=== PATIENT | female | born 1950 | race Caucasian/White ===

== ENCOUNTER 2020-02-08 09:45 | Outpatient (CLI) | payer MEDICARE, OTHER, SELFPAY ==
--- NOTE | ~2020-02-08 | MM_ITS ---
EXAMINATION: MM screening cristiano BI w soledad HISTORY: Screening mammogram TECHNIQUE: Craniocaudal and mediolateral oblique 3-D tomosynthesis images were obtained and synthetic 2-D images were generated. CAD analysis was submitted and interpreted. COMPARISON: 07/21/2018, 10/29/2016, 08/22/2014 bilateral digital screening mammogram examinations BREAST PARENCHYMAL COMPOSITION: The breasts are heterogeneously dense, which may obscure small masses . FINDINGS: There is no evidence of suspicious mass, calcification, or architectural distortion to sugg est malignancy in either breast. There has been no suspicious interval change. IMPRESSION: 1. No mammographic evidence of malignancy. 2. Recommend routine screening mammography in one year. BI-RADS Category 1: Negative Reviewed, dictated and finalized at location A.
== END 2020-02-08 09:46 | disposition home or self-care (01) ==
LOC: ANHIMG 10:01
DX: Z12.31 Encounter for screening mammogram for malignant neoplasm of breast (principal)
CPT/HCPCS: 77063; 77067

== ENCOUNTER 2021-02-20 01:15 | Day surgery (SDC) | payer MEDICARE, OTHER, SELFPAY ==
[2021-02-06 15:55] VITALS: BMI 24.5
[2021-02-20] MEDS: LACTATED RINGERS 1,000 ML 150 ML IV CONT (09:58)
[2021-02-20 10:04] VITALS: BP 139/74; PULSE 50; RESP 18; TEMP 36.3; O2SAT 100; BMI 23.6
--- NOTE | 2021-02-20 10:06 | WPDGICN ---
Assessment and Plan Assessment and plan (1) Diverticulitis: Code(s): K57.92 - Diverticulitis of intestine, part unspecified, without perforation or abscess without bleeding Status: Acute Assessment and Plan: Patient presents for screening colonoscopy. She has resolved diverticulitis several months ago. Patient is encouraged to take a high-fiber diet. Further recommendations may be given after endoscopy. Currently diverticulitis appears resolved clinically. GI Consult Note Consult date/time: 02/20/21 10:06 HPI: Pili Moran is a 70 year old female Presents because of history of diverticulitis. Patient states that in August or September of this year she experience left lower quadrant pain. She was found to have diverticulitis. Patient was treated with broad-spectrum antibiotic coverage to pain has resolved. She is referred here because of history of diverticulitis. She currently denies any abdominal pain. She states that her weight appetite bowel movements are normal. Patient reports that she had a previous episode of diverticulitis in 2017 that has resolved until her current episodes. Patient's family history is noncontributory. Patient has no reported family history of polyps or cancer. Review of Systems Review of Systems: All systems reviewed & are unremarkable except as noted in HPI and below PMFSH Social History Social History Smoking status: Former smoker Tobacco type: cigarettes Alcohol intake: current Drinks per week: 7 Living arrangements: with family Spiritual care concerns: No Meds Home Medications and Allergies Home Medications Medication Instructions Recorded Confirmed Type amlodipine 5 mg PO DAILY 02/06/21 02/06/21 History ascorbic acid (vitamin C) 500 mg PO DAILY 02/06/21 02/06/21 History aspirin [Adult Low Dose Aspirin] 81 mg PO DAILY 02/06/21 02/06/21 History cholecalciferol (vitamin D3) 25 mcg PO DAILY 02/06/21 02/06/21 History [Vitamin D3] fiber 1 cap PO DAILY 02/06/21 02/06/21 History potassium chloride 20 meq PO DAILY 02/06/21 02/06/21 History rosuvastatin 5 mg PO DAILY 02/06/21 02/06/21 History Allergies Allergy/AdvReac Type Severity Reaction Status Date / Time No Known Allergies Allergy Unverified 02/06/21 15:52 Vital Signs Vital Signs - 24 hr 02/20/21 10:04 Temperature 97.3 F L Pulse Rate 50 L Respiratory Rate 18 Blood Pressure 139/74 Pulse Oximetry 100 Exam Narrative: Exam Narrative: Physical exam reveals patient be alert. Vital signs stable. HEENT exam is unremarkable. Patient is anicteric. Lungs are clear to auscultation and percussion. Heart is without murmur or extra sounds. Abdominal exam bowel sounds are present soft nontender with no organomegaly.
--- NOTE | 2021-02-20 10:38 | WPDANESEPPF ---
Anes - Initial Pre Proc Eval Procedure: Operation Date: 02/20/21 11:00 Proposed Procedures p Colonoscopy - Lobo Gutierrez MD Date/Time: 02/20/21 10:38 Surgeon: Lobo Gutierrez MD Pre Op Diagnosis: diverticulitis Patient Data Age: 70 Gender: F Height: 1.55 m Weight: 56.7 kg Last Vital Signs Temp 97.3 F L 02/20/21 10:04 Pulse 50 L 02/20/21 10:04 Resp 18 02/20/21 10:04 BP 139/74 02/20/21 10:04 Pulse Ox 100 02/20/21 10:04 Allergies Allergy/AdvReac Type Severity Reaction Status Date / Time No Known Allergies Allergy Unverified 02/06/21 15:52 Home Medications Medication Instructions Recorded Confirmed Type amlodipine 5 mg PO DAILY 02/06/21 02/06/21 History ascorbic acid (vitamin C) 500 mg PO DAILY 02/06/21 02/06/21 History aspirin [Adult Low Dose Aspirin] 81 mg PO DAILY 02/06/21 02/06/21 History cholecalciferol (vitamin D3) 25 mcg PO DAILY 02/06/21 02/06/21 History [Vitamin D3] fiber 1 cap PO DAILY 02/06/21 02/06/21 History potassium chloride 20 meq PO DAILY 02/06/21 02/06/21 History rosuvastatin 5 mg PO DAILY 02/06/21 02/06/21 History Patient hx anesthesia problems: none Family hx anesthesia problems: none [facility] Past Medical History Medical History (Updated 02/20/21 @ 10:35 by Cyrus Reddy MD) Hyperlipidemia Hypertension Social History Social History Smoking status: Former smoker Tobacco type: cigarettes Alcohol intake: current Drinks per week: 7 Living arrangements: with family Spiritual care concerns: No Anes - Eval Final PreProcedure Day of Procedure 02/20/21 10:38 Patient weight: normal Heart: regular rate and rhythm Lungs: clear to auscultation Airway: Mallampati scale class II Neurological: alert and oriented Last oral intake: >/= 8 hours ASA classification: II Emergent: no Anesthetic plan: proceed Anesthesia type and monitoring: general GIVS and standard monitoring Informed Consent: The patient's anesthetic plan and its attendant risks and benefits were discussed with the patient/family/POA. Questions were solicited and answers provided to the satisfaction of the patient/family/POA.
[2021-02-20 11:06] VITALS: BP 112/68; PULSE 60; RESP 16; O2SAT 99
[2021-02-20 11:16] VITALS: BP 114/74; PULSE 60; RESP 20; O2SAT 99
[2021-02-20 11:26] VITALS: BP 131/68; PULSE 60; RESP 20; O2SAT 99
== END 2021-02-20 11:40 | disposition home or self-care (01) ==
PROVIDERS: Visit Provider Internal Medicine Gastroenterology
PROC: 0DJD8ZZ Inspection of Lower Intestinal Tract, Via Natural or Artificial Opening Endoscopic (ICD-10-PCS; CPT 45378; principal; 2021-02-20 11:00)
DX: Z12.11 Encounter for screening for malignant neoplasm of colon (principal); K57.30 Diverticulosis of large intestine without perforation or abscess without bleeding; K64.8 Other hemorrhoids; Z87.19 Personal history of other diseases of the digestive system; Z87.891 Personal history of nicotine dependence; Z79.82 Long term (current) use of aspirin
CPT/HCPCS: G0121; J2704; J7120

== ENCOUNTER 2023-05-06 09:46 | Outpatient (CLI) | payer MEDICARE, SELFPAY ==
--- NOTE | ~2023-05-06 | MM_ITS ---
EXAMINATION: MM screening cristiano BI w soledad HISTORY: Screening TECHNIQUE: Craniocaudal and mediolateral oblique 3-D tomosynthesis images were obtained and synthetic 2-D images were generated. CAD analysis was submitted and interpreted. COMPARISON: Comparison to multiple prior studies sequentially, with oldest reviewed study dated 05/18. BREAST PARENCHYMAL COMPOSITION: The breasts are heterogeneously dense, which may obscure small masses .. FINDINGS: There is no evidence of suspicious mass, calcification, or architectural distortion to sugg est malignancy in either breast. There has been no suspicious interval change. IMPRESSION: 1. No mammographic evidence of malignancy. 2. Recommend routine screening mammography in one year. BI-RADS Category 1: Negative Reviewed, dictated and finalized at location A.
== END 2023-05-06 09:47 | disposition home or self-care (01) ==
LOC: ANHIMG 09:51
DX: Z12.31 Encounter for screening mammogram for malignant neoplasm of breast (principal)
CPT/HCPCS: 77063; 77067

== ENCOUNTER 2024-11-23 09:55 | Outpatient (CLI) | payer MEDICARE, SELFPAY ==
--- NOTE | ~2024-11-23 | MM_ITS ---
EXAMINATION: MM screening cristiano BI w soledad HISTORY: Screening TECHNIQUE: Craniocaudal and mediolateral oblique 3-D tomosynthesis images were obtained and synthetic 2-D images were generated. CAD analysis was submitted and interpreted. COMPARISON: Comparison to multiple prior studies sequentially, with oldest reviewed study dated 10/29. BREAST PARENCHYMAL COMPOSITION: Dense: The breasts are heterogeneously dense, which may obscure small masses FINDINGS: There is no evidence of suspicious mass, calcification, or architectural distortion to sugg est malignancy in either breast. There has been no suspicious interval change. IMPRESSION: 1. No mammographic evidence of malignancy. 2. Recommend routine screening mammography in one year. BI-RADS Category 1: Negative Reviewed, dictated and finalized at location A.
--- OUTSIDE RECORDS SUMMARY | 2024-11-23 11:11 | XMS_ITS ---
Author Organization [facility] Address [address] [place] [address] Care Team Providers Care Skin Peeling Machine Operator Name Role Phone Avelina Coronel Primary Care Provider Alonso Toussaint Unavailable [phone] Encounters Encounter Location Date Provider Diagnosis [facility] [address] [place] [address] 10/26/2024 Alonso Bourne PLAN OF TREATMENT No Information
--- OUTSIDE RECORDS SUMMARY | 2024-11-23 11:12 | XMS_ITS | Clinical Summary ---
Author Organization [facility] Address [address] [facility] [place] [address] Care Team Providers Care Sustainability Director Name Role Phone Avelina Coronel MD Primary Care Provider + Lobo Mcarthur MD Unavailable [phone] Source Comments [facility],non-owned Affiliates and Associated Physician Practices is amultiple site organization consisting of ambulatory clinics and hospital sitesin [place], [place], [place] and [place]. This disclosure is being madepursuant to the Care Everywhere program and may not contain all information available regarding this patient. Last updated 18.[facility] Allergies No known active allergies Medications * Be aware that medications may not be up to date on this document. Alwaysverify current medications with the patient. Medication Sig Dispensed Refills Start Date End Date Status multivitamins (ONE A DAY) tablet Take 1 Tab by mouth daily. Active GLUCOSAMINE CHONDRO COMPLEX PO Take by mouth daily. Acti ve aspirin 81 MG tablet Take 81 mg by mouth daily. With food Active PSYLLIUM POIndications:fiber supplement Take by mouth once daily Reasons: fiber supplement Active amlodipine (NORVASC) 5 MG tabletIndications:Hy pertension,Fear of,Bronchiectasis,Hy perglycemia Take 1 Tab by mouth daily. 90 3 07/18/2009 Active docusate sodium (COLACE) 100 MG capsule Take 1 Cap by mouth once daily as needed for Constipation. 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 Diverticulosis () 07/20/2008 Laryngopharyngeal Reflux causing a recurrent cou gh 07/20/2008 Bronchiectasis 07/20/2008 Hyperglycemia 07/20/2008 Immunizations Name Administration Dates Next Due INFLUENZA VACCINE 05/01/2009,06/17/2008,06/17/20 07 PNEUMOCOCCAL PPSV23 11/15/2006 TDAP (7yrs+) 11/15/2006 Family History Medical History Relation Name Comments Diabetes Brother 1 Cancer - Colon Brother 2 Hypertension Mother Stroke Mother Cancer - Breast Sister Relation Name Status Comments Brother 1 Brother 2 Mother Sister Social History Tobacco Use Types Packs/Day Years Used Date Smoking Tobacco: Former Cigarettes 0.5 29 0 08/17/1968 - 08/17/1997 Smokeless Tobacco: Never Tobacco Cessation:Counseling Given: No Alcohol Use Standard Drinks/Week Comments Yes 2.5 (1 standard drink = 0.6 oz p ure alcohol) socially Sex and Gender Information Value Date Recorded Sex Assigned at Not on file Gender Identity Not on file Sexual Orientation Not on file Last Filed Vital Signs Vital Sign Reading Time Taken Comments Blood Pressure 124/60 08/24/2019 1:09 PM AIRCRAFT CLEANING SUPERVISOR Pulse 84 08/24/2019 1:09 PM AIRCRAFT CLEANING SUPERVISOR Temperature 37.1 C (98.7 F) 08/24/2019 1:09 PM AIRCRAFT CLEANING SUPERVISOR Respiratory Rate 18 03/06/2017 8:58 AM CDT Oxygen Saturation 98% 08/24/2019 1:09 PM AIRCRAFT CLEANING SUPERVISOR Inhaled Oxygen Concentration 98% 10/23/2010 1 :18 PM AIRCRAFT CLEANING SUPERVISOR Weight 59.9 kg (132 lb) 08/24/2019 1:09 PM AIRCRAFT CLEANING SUPERVISOR Height 154.9 cm (5' 1 ) 03/04/2017 3:30 PM CDT Body Mass Index 24.94 03/04/2017 3:30 PM CDT Plan of Treatment Health Maintenance Due Date Last Done Comments COLOGUARD (AGES 45-75) - COL ON CA SCREENING 1950 CT COLONOGRAPHY - COLON CA SCREENING 1950 FIT - COLON CA SCREENING 1950 FLEX SIG - COLON CA SCREENING 1950 MEDICARE AWV 12 MONTHS 1950 HEPATITIS C SCREENING 09/02/1970 ZOSTER VACCINE (1 of 2) 2002 PNEUMOCOCCAL VACCINE 50+ (2 of 2 - PCV) 11/16/2007 11/15/2006 MAMMOGRAM 09/08/2010 09/08/2008 BONE DENSITY TESTING 07/17/2012 07/17/2007 COLON MONITORING 10/26/2015 10/25/2010, 10/23/2010, 03/17/2007 Colorectal Cancer Screening 10/26/2015 DTAP/TDAP/TD VACCINES (2 - T d or Tdap) 11/15/2016 11/15/2006 COLONOSCOPY - COLON CA SCREENING 10/23/2020 10/23/2010 COVID-19 VACCINE (1 - 2023-2 5 season) 2024 DEPRESSION SCREENING 08/17/2024 INFLUENZA VACCINE (Season Ended) 2025 05/01/2009, 06/17/2008, 06/17/2007 Respiratory Syncytial Virus (RSV) Vaccine Pt: or over 60 yrs (1 - 1-dose 75+ series) 2027 HEPATITIS B VACCINE Aged Out No longe r eligible based on patient's age to complete this topic HIB VACCINE Aged Out No longer eligi ble based on patient's age to complete this topic HPV VACCINE Aged Out No longer eligi ble based on patient's age to complete this topic MENINGOCOCCAL (Group B) VACCINE SHARED DECISION-MAKING Aged Out No longer eligible based on patient's age to complete this topic MENINGOCOCCAL GROUPS A/C/Y/W VACCINE Aged Out No longer eligible b ased on patient's age to complete this topic Procedures Procedure Name Priority Date/Time Associated Diagnosis Comments ENDOSCOPY, COLON, SCREENING Routine 10/23/2010 MAMMO BILAT SCREENING Routine 09/08/2008 from Last 3 Months or Most Recently Relevant to Health Maintenance Results * ENDOSCOPY, COLON, SCREENING (10/23/2010) Ryne Naylor MD GI PROCEDURE ORDERAB LES * MAMMO SCREENING DIGITAL IMAGE BILAT (09/08/2008) Anatomical Region Laterality Modality Breast Bilateral Other Brittnee Us MD MAMMO ORDERABLES from Last 3 Months or Most Recently Relevant to Health Maintenance Advance Directives * Full Code (Latest Code Status on File) Date Activated Date Inactivated Comments 03/04/2017 11:00 PM 03/06/2017 12:06 PM Care Teams Sustainability Director Relationship Specialty Start Date End Date Avelina Coronel MD PCP - General Internal Medicine 08/29/10 Lobo Mcarthur MD [address] [facility] [address] [place] [address] System Support Specialist Cardiology 08/24/19
--- OUTSIDE RECORDS SUMMARY | 2024-11-23 11:12 | XMS_ITS ---
Author Organization [facility] Address [address] [place] [address] Care Team Providers Care Software Technician Name Role Phone Avelina Coronel Primary Care Provider Alonso Toussaint Unavailable [phone] ALLERGIES No Known Allergies REASON FOR REFERRAL Reason DIAGNOSES: cervical radiculopathy, hand weakness, HNP, scoliosis, DDD, facet DJD 3 times per week for 3 weeks eval and treat, exercise, modalities per therapist's discretion; HEP Referral Organization [facility] Referring Provider First Name Alonso Referring Provider Last Name Tayla Referring Provider Speciality Orthopedic Surgery Referred Provider Specialty Physical The rapy Referral Priority Routine REASON FOR VISIT f/u after PT & NELLY MEDICATIONS Medication SIG (Take, Route, Fr equency, Duration) Notes Start Date End Date Status Rosuvastatin Calcium Active amLODIPine Benzoate Active Meloxicam 15 MG 1 tablet Orally Once a day with food for 90 days 08/31/2024 Active PROBLEMS Problem Type ICD Code Onset Dates Problem Status W/U Status Risk SNOMED Code Notes Problem Cervical disc disorder with radiculopathy (M50.10) Active confirmed Cervical disc disorder with radiculopathy ([id number]) VITAL SIGNS BMI 24.56 kg/m2 09/14/2024 Height 61 in 09/14/2024 Weight 130 lbs 09/14/2024 Encounters Encounter Location Date Provider Diagnosis [facility] [address] [place] [address] 09/14/2024 Alonso Bourne Cervical disc disord er with radiculopathy M50.10 ; Cervical spinal stenosis M48.02 ; DDD (degenerative disc disease), cervical M50.30 ; Scoliosis M41.9 ; Facet arthritis, degenerative, cervical spine M47.812 and Left shoulder pain M25.512 ASSESSMENTS Encounter Date Diagnosis Assessment Notes Treatment Notes Treatment Clinical Notes 09/14/2024 Cervical disc disorder with radiculopathy (ICD-10 - M50.10) 09/14/2024 Cervical spinal stenosis (ICD-10 - M48.02) 09/14/2024 DDD (degenerative disc disease), cervical (ICD-10 - M50.30) 09/14/2024 Scoliosis (ICD-10 - M41.9) 09/14/2024 Facet arthritis, degenerative, cervical spine (ICD-10 - M47.812) 09/14/2024 Left shoulder pain (ICD-10 - M25.512) PLAN OF TREATMENT Referrals Referral Date Details DIAGNOSES: cervical radiculopathy, hand weakness, HNP, scoliosis, DDD, facet DJD 3 times per week for 3 weeks eval and treat, exercise, modalities per therapist's discretion; [facility] Progress Notes * Examination Category Sub-Category Detail Notes General Examination GENERAL: Patient is a n alert and cooperative female who moves about the room in a cautious fashion. She does not walk with a list/limp. She has difficulty with tandem walking and exhibits mild ataxia NECK: ROM reduced in all d irections by 35%. Spurling's test mildly positive into L. arm HEART: Regular rate and rhy thm LUNGS: Clear to auscultatio n in all spaulding ABDOMEN: No tenderness to pal pation, bowel sounds present all four quadrants NEUROLOGIC: UE neurologic exam r eveals diminished sensation to pinprick bilaterally. Decreased L. flexor strength. L. hand intrinsic muscle weakness. L. hand digit extensor weakness. DTR's symmetric. Deyanira's sign negative. LE neurologic exam reveals symmetric DTR's, intact sensation, 5+/5+ motor strength. SLR testing negative. Mild ataxia with heel to toe walk. No clonus, negative Babinski's sign involving LE's SKIN: No evidence of skin rashes or dermal lesions MUSCULOSKELETAL: Thoracic exam reveal s tension involving medial scapular musculature and L. trapezius musculature. Lumbar exam reveals no tenderness to palpation, no spasm. Lumbar ROM near full PSYCHIATRIC: Mood and affect appe ar normal HEENT: No masses, PERRLA, E OM intact, no nasal drainage, no lymphadenopathy JOINTS: She c/o pain involvi ng R. shoulder with decreased ROM. She has a known h/o arthritis. She has a h/o knee arthritis with knee pain HEMATOLOGIC: No evidence of exces sive bruising or bleeding Plain X-ray Imaging Studies CERVICAL SPINE X-RAY S: Consultation Request Notes Referral Date Referring Provider Referred Provider Not es 09/14/2024 Alonso Bourne , DIAGNOSES: c ervical radiculopathy, hand weakness, HNP, scoliosis, DDD, facet DJD 3 times per week for 3 weeks eval and treat, exercise, modalities per therapist's discretion; HEP
--- OUTSIDE RECORDS SUMMARY | 2024-11-23 11:12 | XMS_ITS ---
Author Organization [facility] Address [address] [facility] [address] [place] [address] Care Team Providers Care Engraver Lettering Name Role Phone Avelina Coronel Primary Care Provider Alonso Toussaint Unavailable [phone] REASON FOR VISIT Cervical Encounters Encounter Location Date Provider Diagnosis [facility] [address] [facility] [address] [place] [address] 09/12/2024 Alonso Bourne PLAN OF TREATMENT No Information
--- OUTSIDE RECORDS SUMMARY | 2024-11-23 11:12 | XMS_ITS | Clinical Summary ---
Author Organization [facility] Address [address] [place] [address] Care Team Providers Care Tool Clerk Name Role Phone Unavailable Primary Care Provider Unavailabl e Encounters Date Type Department Care Team Description 11/02/2024 External Device Data [facility] ABSTRACTION Provider, Abstract 10/22/2024 External Device Data [facility] ABSTRACTION Provider, Abstract 10/21/2024 External Device Data [facility] ABSTRACTION Provider, Abstract 10/19/2024 External Device Data [facility] ABSTRACTION Provider, Abstract 10/05/2024 External Device Data [facility] ABSTRACTION Provider, Abstract 09/14/2024 External Device Data [facility] ABSTRACTION Provider, Abstract 09/08/2024 External Device Data [facility] ABSTRACTION Provider, Abstract 08/30/2024 External Device Data [facility] ABSTRACTION Provider, Abstract 08/27/2024 11:00 AM COMMUNITY ASSISTANT Ancillary Procedure [facility] [address] [place] [address] Avelina Coronel MD Cervical myelopathy with cervical radiculopathy (CMS/HCC) from Last 3 Months Social History Tobacco Use Types Packs/Day Years Used Date Smoking Tobacco: Never Assessed Comments Unknown Sex and Gender Information Value Date Recorded Sex Assigned at Not on file Legal Sex Female 7:24 PM COMMUNITY ASSISTANT Gender Identity Not on file Sexual Orientation Not on file Plan of Treatment Health Maintenance Due Date Last Done Comments FIT-DNA Q 3 years 1997 FIT/FOBT Q 1 year 1997 Flex Sig/CT Colonography Q 5 years 1997 ZOSTER VACCINE (1 of 2) 2002 PNEUMOCOCCAL VACCINE 50+ YEA RS (2 of 2 - PCV) 11/16/2007 11/15/2006 BREAST CANCER SCREENING 09/08/2009 09/08/2008 RSV VACCINE (60+ or ) (1 - Risk 60-74 years 1-dose series) 2012 DTAP/TDAP/TD VACCINES (2 - Td or Tdap) 11/15/2016 OSTEOPOROSIS SCREENING 2017 COLORECTAL SCREENING 10/23/2020 10/23/2010 Colorectal Cancer Screening 10/23/2020 INFLUENZA VACCINE Completed 05/17/2024, 06/17/2023 Procedures Procedure Name Priority Date/Time Associated Diagnosis Comments MRI CERVICAL WO CONTRAST Routine 08/27/2024 11:23 AM COMMUNITY ASSISTANT Cervical myelopathy with cervical radiculopathy (CMS/HCC) from Last 3 Months Results * MRI CERVICAL WO CONTRAST (08/27/2024 11:23 AM COMMUNITY ASSISTANT) Anatomical Region Laterality Modality Spine Magnetic Resonan ce 08/27/2024 11:2 3 AM COMMUNITY ASSISTANT Impressions 08/27/2024 11:42 AM COMMUNITY ASSISTANT IMPRESSION: There is rightward curvature of the cervical spine which may be positional as rightward curvature was not present on plain radiographs of the cervical spine from August 2024. Advanced degenerative findings at the atlantodental relationship are present, best noted on plain radiographs where there is severe joint space narrowing between the lateral masses of C1 and C2. There is borderline central stenosis at C5/6. There is no central stenosis at any other level. Please see body of report with regard to multilevel severe left foraminal stenosis. Narrative 08/27/2024 11:42 AM COMMUNITY ASSISTANT EXAM: MRI CERVICAL WO CONTRAST DATE: 08/27/2024 11:27 AM HISTORY: Cervical myelopathy with cervical radiculopathy; Cervical myelopathy with cervical radiculopathy TECHNIQUE: Multiplanar multisequencing images of the cervical spine were performed without contrast. COMPARISON: Plain films from August 19, 2022. FINDINGS: The dens is intact but degenerative findings of the atlantoaxial region are present. There is rightward curvature of the cervical spine, possibly positional related. No rightward curvature was noted on plain radiographs from August 19, 2024. Structures within the posterior fossa are appropriately positioned. No marrow edema is noted. Vertebral body height is maintained. No abnormal cord signal is noted. C2/3: No central stenosis or right foraminal stenosis is present. Uncovertebral joint hypertrophy severely narrows the left foramen. C3/4: There is no central stenosis or right foraminal stenosis. There is severe left facet arthropathy and there is uncovertebral joint hypertrophy. As a result, there is severe left foraminal stenosis. C4/5: No central stenosis or right foraminal stenosis. There is severe left facet arthropathy which moderately narrows the left foramen. C5/6: A posterior disc osteophyte complex is present with borderline central stenosis. The right foramen is patent. Severe left facet arthropathy combine with uncovertebral joint hypertrophy to severely narrow the left foramen. C6/7: There is a mild posterior disc osteophyte complex without central stenosis or foraminal stenosis. There is mild left facet arthropathy. C7/T1: There is minor posterior disc bulging without central stenosis or right foraminal stenosis. Facet arthropathy and uncovertebral joint hypertrophy severely narrow the left foramen. Procedure Note Clary López MD - 08/27/2024 EXAM: MRI CERVICAL WO CONTRAST DATE: 08/27/2024 11:27 AM HISTORY: Cervical myelopathy with cervical radiculopathy; Cervical myelopathy with cervical radiculopathy TECHNIQUE: Multiplanar multisequencing images of the cervical spine were performed without contrast. COMPARISON: Plain films from August 19, 2022. FINDINGS: The dens is intact but degenerative findings of the atlantoaxial region are present. There is rightward curvature of the cervical spine, possibly positional related. No rightward curvature was noted on plain radiographs from August 19, 2024. Structures within the posterior fossa are appropriately positioned. No marrow edema is noted. Vertebral body height is maintained. No abnormal cord signal is noted. C2/3: No central stenosis or right foraminal stenosis is present. Uncovertebral joint hypertrophy severely narrows the left foramen. C3/4: There is no central stenosis or right foraminal stenosis. There is severe left facet arthropathy and there is uncovertebral joint hypertrophy. As a result, there is severe left foraminal stenosis. C4/5: No central stenosis or right foraminal stenosis. There is severe left facet arthropathy which moderately narrows the left foramen. C5/6: A posterior disc osteophyte complex is present with borderline central stenosis. The right foramen is patent. Severe left facet arthropathy combine with uncovertebral joint hypertrophy to severely narrow the left foramen. C6/7: There is a mild posterior disc osteophyte complex without central stenosis or foraminal stenosis. There is mild left facet arthropathy. C7/T1: There is minor posterior disc bulging without central stenosis or right foraminal stenosis. Facet arthropathy and uncovertebral joint hypertrophy severely narrow the left foramen. IMPRESSION: There is rightward curvature of the cervical spine which may be positional as rightward curvature was not present on plain radiographs of the cervical spine from August 2024. Advanced degenerative findings at the atlantodental relationship are present, best noted on plain radiographs where there is severe joint space narrowing between the lateral masses of C1 and C2. There is borderline central stenosis at C5/6. There is no central stenosis at any other level. Please see body of report with regard to multilevel severe left foraminal stenosis. Avelina Coronel MD MR ORDERABLES Final Result from Last 3 Months Insurance
--- OUTSIDE RECORDS SUMMARY | 2024-11-23 11:12 | XMS_ITS | Clinical Summary ---
Author Organization [facility] [address] Address [address] [place] [phone] Care Team Providers Care Painter Helper Name Role Phone Avelina Coronel MD Primary Care Provider [phone] Allergies No known active allergies Medications amLODIPine (NORVASC) 5 mg tablet Take 1 tablet (5 mg total) by mouth daily Active aspirin 81 mg enteric coated tablet Take 1 tablet (81 mg total) by mouth daily Active docusate sodium (COLACE) 100 mg capsule Take 1 capsule (100 mg total) by mouth daily as needed 04/29/2013 Active rosuvastatin (CRESTOR) 5 mg tablet Take 1 tablet (5 mg total) by mouth daily Active meloxicam (MOBIC) 15 mg tablet 1 tablet Orally Once a day with food for 90 days 08/31/2024 Active Hospital, Clinic, or Other Facility Administered Medication Ordered Dose Route Frequency Start Date End Date Status BUPivacaine HCl (MARCAINE) 0.25 % (2.5 mg/mL) injection 1 mLIndications:Rota tor cuff tear arthropathy of right shoulder 1 mL OTHER One-Time Injection 10/25/2024 10/25/2024 Ended triamcinolone (KENALOG) 40 mg/mL injection 40 mgIndications:Rota tor cuff tear arthropathy of right shoulder 40 mg intra-artic One-Time Injection 10/25/2024 10/25/2024 Ended Active Problems Problem Noted Date Diagnosed Date Myalgia 07/25/2024 Trigger point of left shoulder region 07/13/2024 Left shoulder pain 07/13/2024 Rotator cuff tear arthropathy of right shoulder 04/27/2024 Right shoulder pain 04/27/2024 Encounters Date Type Department Care Team Description 10/25/2024 1:30 PM CDT Office Visit [facility] [address] [place] [phone] Nelson Valdez MD Rotator cuff tear arthropathy of right shoulder (Primary Dx); Primary osteoarthritis of left shoulder 10/14/2024 Telephone [facility] [address] [place] [address] [place] [phone] Kaden Brown MD orthopedics (rescheduling) from Last 3 Months Medical History Medical History Date Comments Hypertension Hypertension Family History Medical History Relation Name Comments Valvular heart disease Brother 2 Valvu lar Heart Disease; Valvular heart disease Mother 2 Valvu lar Heart Disease; Relation Name Status Comments Brother 1 Alive Brother 2 Mother 1 Alive Mother 2 Social History Tobacco Use Types Packs/Day Years Used Date Smoking Tobacco: Former Cigarettes Q uit: 08/17/1997 Tobacco Cessation:Counseling Given: Not Answered Alcohol Use Standard Drinks/Week Comments Yes 0 (1 standard drink = 0.6 oz pur e alcohol) Comments Unknown Sex and Gender Information Value Date Recorded Sex Assigned at Not on file Legal Sex Female 2:52 AM ELECTRICIAN SECOND Gender Identity Not on file Sexual Orientation Not on file Obstetrics History Last Filed Vital Signs Vital Sign Reading Time Taken Comments Blood Pressure 118/72 03/30/2024 12:02 PM CDT Pulse 74 03/30/2024 12:02 PM CDT Temperature 37 C (98.6 F) 03/30/2024 12:02 PM CDT Respiratory Rate 20 03/30/2024 12:02 PM CDT Oxygen Saturation 98% 03/30/2024 12:02 PM CDT Inhaled Oxygen Concentration - - Weight 59.9 kg (132 lb) 10/25/2024 1:20 PM CDT s tated Height 157.5 cm (5' 2 ) 10/25/2024 1:20 PM CDT s tated Body Mass Index 24.14 10/25/2024 1:20 PM CDT Plan of Treatment Health Maintenance Due Date Last Done Comments Breast Cancer Screening-Mammogram 1952 Colon Cancer Screening-Colonoscopy 1950 Depression Screening 1952 Fall Risk Assessment 1950 Hepatitis C Screening 1950 Osteoporosis Screening-Bone Density Scan 1952 Hepatitis B Screening 1970 DTaP/Tdap/Td Vaccine (2 - Td or Tdap) 11/15/2016 11/15/2006 Well Visit 65+ 2017 Zoster Vaccine (2 of 2) 05/26/2018 03/31/2018 Pneumococcal vaccine 65+ (2 of 2 - PCV) 05/11/2021 05/11/2020, 11/15/2006 Covid-19 Vaccine (2023-2 5 season) 2024 01/05/2024, 06/24/2023, 05/19/2023, Additional history exists Influenza Vaccine Completed 05/17/2024, , 05/19/2023, Additional history exists Procedures Procedure Name Priority Date/Time Associated Diagnosis Comments [place] ARTHROCENTESIS ASPIR&/INJ MAJOR JT/BURSA W/O US Routine 10/25/2024 1:30 PM CDT Rotator cuff tear arthropathy of right shoulder from Last 3 Months Results * TX ARTHROCENTESIS ASPIR&/INJ MAJOR JT/BURSA W/O US (10/25/2024 1:30 PM CDT) Narrative Nelson Valdez MD - 10/25/2024 1:30 PM CDT Nelson Valdez MD 10/25/2024 2:32 PM Large Joint (Hip, Knee, Shoulder) Injection: R glenohumeral Performed by: Nelson Valdez MD Authorized by: Nelson Valdez MD Large Joint Injection/Aspiration: Consent Given by: Patient Site marked: the procedure site was marked Verbal consent obtained: Yes Written consent obtained: No Supporting Documentation: Indications: Pain Procedure Details: Location: Shoulder Site: R glenohumeral Prep: patient was prepped using a clean technique Needle Size: 22 G Approach: Posterior Ultrasound guided: No Fluroscopic guidance: No Medications: 40 mg triamcinolone 40 mg/mL; 1 mL BUPivacaine HCl 0.25 % (2.5 mg/mL) Patient tolerance: Patient tolerated the procedure well with no immediate complications us Nelson Valdez MD IN CLINIC/BEDSIDE ORDERABLES Fi nal Result from Last 3 Months Insurance [facility] MEDICARE ADVANTAGE MEDICARE [facility] MCR SUPPLEMENT Care Teams Painter Helper Relationship Specialty Start Date End Date Avelina Coronel MD [address] [address] PCP - General 02/15/13
--- OUTSIDE RECORDS SUMMARY | 2024-11-23 11:12 | XMS_ITS | Referral Summary ---
Author Organization [facility] [address] Address [address] [place] [phone] Care Team Providers Care Screen Roller Name Role Phone Avelina Coronel MD Primary Care Provider [phone] Encounters Date Type Department Care Team Description 10/25/2024 1:30 PM CDT Office Visit [facility] [address] [place] [phone] Nelson Valdez MD Rotator cuff tear arthropathy of right shoulder (Primary Dx); Primary osteoarthritis of left shoulder 10/14/2024 Telephone [facility] [address] [phone] Kaden Brown MD orthopedics (rescheduling) from Last 3 Months Allergies No known active allergies Medications amLODIPine [...] right shoulder 04/27/2024 Right shoulder pain 04/27/2024 Social History Tobacco Use Types Packs/Day Years Used Date Smoking Tobacco: Former Cigarettes Q uit: 08/17/1997 Tobacco Cessation:Counseling Given: Not Answered Alcohol Use Standard Drinks/Week Comments Yes 0 (1 standard drink = 0.6 oz pur e alcohol) Comments Unknown Sex and Gender Information Value Date Recorded Sex Assigned at Not on file Legal Sex Female 2:52 AM 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 AND 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 Gender Identity Not on file Sexual Orientation [...] 10/25/2024 1:20 PM CDT Plan of Treatment Not on file Procedures Procedure Name Priority Date/Time Associated Diagnosis Comments CA ARTHROCENTESIS ASPIR&/INJ MAJOR JT/BURSA W/O US Routine 10/25/2024 1:30 PM CDT Rotator cuff tear arthropathy of right shoulder from Last 3 Months Results * CA ARTHROCENTESIS ASPIR&/INJ MAJOR JT/BURSA W/O US (10/25/2024 [...] the procedure well with no immediate complications Nelson Valdez MD IN CLINIC/BEDSIDE ORDERABLES Fi nal Result from Last 3 Months Insurance MEDICARE ADVANTAGE MEDICARE R [facility] SUPPLEMENT [place] [employer] [id number] Care Teams Screen Roller Relationship Specialty Start Date End Date Avelina Coronel MD [address] [place] [id number] PCP - General 02/15/13
--- OUTSIDE RECORDS SUMMARY | 2024-11-23 11:12 | XMS_ITS | Patient Health Record ---
Author Organization [facility] , Address [address] [place] [address] Care Team Providers Care Administration Professional Name Role Phone Avelina Coronel Primary Care Provider Alonso Toussaint Unavailable [phone] ALLERGIES No Known Allergies RESULTS Component Value Reference Range Notes X ray : Cervical Spine 7 vie ws, AP, Lateral, Swimmers, Obliques, Flexion and Extension Reviewed date:08/31/2024 11:13:42 AM Interpretation:1020 Performing Lab: Notes/Report: 1020 EMG, NCV, Bilateral, Upper E xtremity, Consultative EDX & Evaluate Symptoms Reviewed date:09/16/2024 01:55:45 PM Interpretation:[facility] [employer] medic[facility] ppo Performing Lab: Notes/Report: [facility] medic[facility] ppo REASON FOR REFERRAL Reason DIAGNOSES: neck pain , radiculopathy, HNP, spinal stenosis, DDD, shoulder pain, scoliosis 3 times per week for 3 weeks eval and treat, exercise, modalities per therapist's discretion; [facility] Referral Organization [facility] Referring Provider First Name Alonso Referring Provider Last Name Tayla Referring Provider Speciality Orthopedic Surgery Referred Provider Specialty Physical [facility] Referral Priority Routine Reason DIAGNOSES: cervical radiculopathy, hand weakness, HNP, scoliosis, DDD, facet DJD 3 times per week for 3 weeks eval and treat, exercise, modalities per therapist's discretion; [facility] Referral Organization [facility] Referring Provider First Name Alonso Referring Provider Last Name Tayla Referring Provider Speciality Orthopedic Surgery Referred Provider Specialty Physical [facility] Referral Priority Routine MEDICATIONS Medication SIG (Take, Route, Fr equency, Duration) Notes Start Date End Date Status Rosuvastatin Calcium Active amLODIPine Benzoate Active Meloxicam 15 MG 1 tablet Orally Once a day with food for 90 days 08/31/2024 Active PROBLEMS Problem Type ICD Code Onset Dates Problem Status W/U Status Risk SNOMED Code Notes Problem HNP (herniated nucleus pulposus), cervical (M50.20) Active confirmed Displaceme nt of cervical intervertebral disc without myelopathy (45986006) Problem DDD (degenerative disc disease), cervical (M50.30) Active confirmed Cervical d isc disorder (317628065) Problem Scoliosis (M41.9) Active confirmed Scol iosis (451391063) Problem Facet arthritis, degenerative, 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) Active confirmed Cervical spondylosis without myelopathy (419446143) Problem Cervical disc disorder with radiculopathy (M50.10) Active confirmed Cervical disc disorder with radiculopathy (179972166) VITAL SIGNS Height 61 in 09/14/2024 Weight 130 lbs 09/14/2024 BMI 24.56 kg/m2 09/14/2024 PROCEDURES Procedure Date Ordered Date Performed Result Body Sit e Cervical Epidural Steroid Injection 08/31/2024 08/31/2024 [facility] Encounters Encounter Location Date Provider Diagnosis [facility], [address] [address] 09/12/2024 Alonso Bourne [facility], [address] [address] 08/31/2024 Alonso Bourne Cervical radiculopat hy M54.12 ; HNP (herniated nucleus pulposus), cervical M50.20 ; DDD (degenerative disc disease), cervical M50.30 ; Scoliosis M41.9 ; Facet arthritis, degenerative, cervical spine M47.812 ; Left shoulder pain M25.512 and Cervical spinal stenosis M48.02 [facility], [address] [address] 09/14/2024 Alonso Bourne Cervical disc disord er with radiculopathy M50.10 ; Cervical spinal stenosis M48.02 ; DDD (degenerative disc disease), cervical M50.30 ; Scoliosis M41.9 ; Facet arthritis, degenerative, cervical spine M47.812 and Left shoulder pain M25.512 [facility] [address] [place] [address] 10/26/2024 Alonso Bourne ASSESSMENTS Encounter Date Diagnosis Assessment Notes Treatment Notes Treatment Clinical Notes 08/31/2024 Cervical radiculopathy (ICD-10 - M54.12) 08/31/2024 HNP (herniated nucleus pulposus), cervical (ICD-10 - M50.20) 09/14/2024 Cervical disc disorder with radiculopathy (ICD-10 - M50.10) 09/14/2024 Cervical spinal stenosis (ICD-10 - M48.02) 08/31/2024 DDD (degenerative disc disease), cervical (ICD-10 - M50.30) 09/14/2024 DDD (degenerative disc disease), cervical (ICD-10 - M50.30) 08/31/2024 Scoliosis (ICD-10 - M41.9) 09/14/2024 Scoliosis (ICD-10 - M41.9) 08/31/2024 Facet arthritis, degenerative, cervical spine (ICD-10 - M47.812) 09/14/2024 Facet arthritis, degenerative, cervical spine (ICD-10 - M47.812) 08/31/2024 Left shoulder pain (ICD-10 - M25.512) 09/14/2024 Left shoulder pain (ICD-10 - M25.512) 08/31/2024 Cervical spinal stenosis (ICD-10 - M48.02) PLAN OF TREATMENT No Information Insurance Providers Payer Name Payer Address Payer Phone Subscriber Number Group Number Insured Name Patient Relationship to Insured Coverage Start Date Coverage End Date [facility] Medicare Advantage PPO [address] [address] [place] [phone] [id number] Pili Moran Self - patient is the insured MEDICAL (GENERAL) HISTORY Medical History History ICD Code Hypertension Neck pain Denies h/o emotional/psychiatric disorde r Denies h/o drug/chemical dependency Surgical History Surgery Date(Month/Year) Hysterectomy 1998 Right rotator cuff tear 2011
== END 2024-11-23 09:56 | disposition home or self-care (01) ==
LOC: ANHIMG 09:59
DX: Z12.31 Encounter for screening mammogram for malignant neoplasm of breast (principal)
CPT/HCPCS: 77063; 77067

== ENCOUNTER 2025-02-27 18:49 | Emergency (ER) | payer MEDICARE, SELFPAY ==
--- NOTE | ~2025-02-27 | XR_ITS ---
EXAM: XR foot LT min 3V DATE: 02/27/2025 19:41 HISTORY: l toe injury . COMPARISON: None available. FINDINGS: Osteopenia. Oblique fracture of the distal aspect of the left fifth proximal phalanx, with mild angulation. The fifth toe is obscured in the lateral projection. No lytic or blastic lesion. Mi ld scattered degenerative changes. Achilles and plantar enthesopathy. No erosion or periosteal change . Soft tissues within normal limits. IMPRESSION: Mildly angulated fracture of the left fifth proximal phalanx. Reviewed, dictated and finalized at location K.
--- OUTSIDE RECORDS SUMMARY | 2025-02-27 18:52 | XMS_ITS ---
Author Organization [facility] Address [address] [place] [address] Care Team Providers Care Banking Attorney Name Role Phone Avelina Coronel Primary Care Provider Alonso Toussaint Unavailable [phone] Encounters Encounter Location Date Provider Diagnosis [facility] [address] [place] [address] 10/26/2024 Alonso Bourne PLAN OF TREATMENT No Information
--- OUTSIDE RECORDS SUMMARY | 2025-02-27 18:53 | XMS_ITS | Encounter Summary ---
Author Organization [facility] Address [address] [place] [address] Care Team Providers Care Nursing Consultant Name Role Phone Unavailable Primary Care Provider Unavailabl e Reason for Visit * Reason Onset Date Comments Echo Results 02/27/2025 MCOT Results 02/27/2025 Surgical Clearance 02/27/2025 Encounter Details Date Type Department Care Team (Late st Contact Info) Description 02/27/2025 Telephone [facility] [address] [phone] Murali Rodriguez MD [address] [facility] [address] [place] [address] Echo Results; MCOT Results; Surgical Clearance Social History Tobacco Use Types Packs/Day Years Used Date Smoking Tobacco: Never Alcohol Use Standard Drinks/Week Comments Yes 0 (1 standard drink = 0.6 oz pur e alcohol) Comments Unknown Sex and Gender Information Value Date Recorded Sex Assigned at Not on file Legal Sex Female 7:24 PM [employer]LE [employer] Gender Identity Not on file Sexual Orientation Not on file documented as of this encounter Miscellaneous Notes * Telephone Encounter - Aleah Peralta RN - 02/27/2025 7:49 AM CDT Echo stable, LVEF 59% with mild regurgitation. Small pericardial effusion noted, no previous echo results for comparison. MCOT showed no life threatening arrhythmias, PVC burden 5% and one episode ofVT. Please review and advise. Thanks, Aleah Alvarez RN ECHO RESULTS 02/24/25 SUMMARY: - Left ventricle: The cavity size was normal. Wall thickness was increased in a pattern of mild LVH. Global systolic function is normal. For Epic reporting: the left ventricular ejection fraction is 59% by biplane method of disks. Diastolic function assessment consistent with abnormal left ventricular relaxation (grade 1 diastolic dysfunction). - Mitral valve: Mild regurgitation. - Left atrium: The atrium is normal in size. - Right ventricle: The cavity size is normal. Systolic function is normal. - Tricuspid valve: Trivial regurgitation. - Pulmonary arteries: Systolic pressure could not be accurately estimated. - Pericardium: A small pericardial effusion is identified circumferential to the heart. The fluid has no internal echoes. There is no evidence of hemodynamic compromise. MCOT RESULTS 02/14/25 The predominant rhythm was sinus. HR ranged from 43-151 bpm; avg 778 bpm. 11 events were transmitted. 3 patient triggered; 8 auto triggered Pt triggered events for lightheadedness, chest pain, heart racing show SR with PVCs. VT occurred 1 time(s) with fastest run 151 BPM lasting 6 beats. PACs were not found during the monitoring period There was no atrial fibrillation, pauses, or advanced AV block 16,835 PVCs with PVC burden of 5% IKE 02/08/25 ASSESSMENT and PLAN: ICD-10-CM ICD-9-CM 1. Preop cardiovascular exam Z01.810 V72.81 EKG 12-LEAD ECHO COMPLETE - CONTRAST AND STRAIN IF INDICATED MOBILE CARDIAC OUTPATIENT TELEMETRY 2. PVC's (premature ventricular contractions) I49.3 427.69 EKG 12-LEAD ECHO COMPLETE - CONTRAST AND STRAIN IF INDICATED MOBILE CARDIAC OUTPATIENT TELEMETRY 3. Benign hypertension I10 401.1 4. Pure hypercholesterolemia E78.00 272.0 Hypertension controlled on amlodipine Lipids at goal on low-dose rosuvastatin Plan: Continue amlodipine for control of hypertension Continue rosuvastatin for control of lipids Echocardiogram to evaluate structure and function of heart 1 week MCOT monitor to evaluate/characterize the cause of the episodes of palpitations and heart racing, and to determine frequency of PVCs If echocardiogram and monitor are benign, then given that the patient routinely has activity level above 5 METS level without difficulty, I would consider the patient an acceptable cardiac risk for the planned C-spine surgery documented in this encounter Plan of Treatment Not on file documented as of this encounter Visit Diagnoses Not on filedocumented in this encounter
--- OUTSIDE RECORDS SUMMARY | 2025-02-27 18:53 | XMS_ITS | Clinical Summary ---
Author Organization [facility] Address [address] [place] [address] Care Team Providers Care Payroll Accounting Specialist Name Role Phone Unavailable Primary Care Provider Unavailabl e Allergies No known active allergies Medications amLODIPine (NORVASC) 5 mg tablet Take 5 mg by mouth daily. Active meloxicam (MOBIC) 15 mg tablet take 1 tablet by mouth daily with food Active rosuvastatin (CRESTOR) 5 mg tablet Take 1 Tablet by mouth daily. 10/13/2024 Active Active Problems Problem Noted Date Diagnosed Date PVC's (premature ventricular contractions) 02/15 Preop cardiovascular exam 02/15/2025 Benign hypertension 02/15/2025 Pure hypercholesterolemia 02/15/2025 Encounters Date Type Department Care Team Description 02/27/2025 Telephone [facility] Heart and Vascular At [address] [place] [address] Loc Rodriguez MD Echo Results; MCOT Results; Surgical Clearance 02/27/2025 Results Follow-Up [facility] Heart and Vascular At [address] [place] [address] Aleah Peralta RN ECHO COMPLETE - CONTRAST AND STRAIN IF INDICATED 02/24/2025 2:46 PM CDT - 02/24/2025 11:59 PM CDT Hospital Encounter [facility] Diagnostic Cardiology Services [address] [place] [address] Loc Rodriguez MD Arrived Discharge Disposition: Home or Self Care 02/08/2025 1:45 PM CDT Office Visit [facility] Heart and Vascular At [facility] [address] [facility] [address] [place] [address] Loc Rodriguez MD Preop cardiovascular exam (Primary Dx); PVC's (premature ventricular contractions); Benign hypertension; Pure hypercholesterolemia 02/08/2025 8:30 AM CDT - 02/08/2025 11:59 PM CDT Hospital Encounter [facility] Non Invasive Cardiology [address] [place] [address] Loc Rodriguez MD Discharge Disposition: Home or Self Care 01/31/2025 External Device Data STL ABSTRACTION Provider, Abstract 01/05/2025 External Device Data STL ABSTRACTION Provider, Abstract 01/04/2025 1:40 PM CDT - 01/04/2025 11:59 PM CDT Hospital Encounter [facility] CT Scan S [facility] [address] [place] [address] Sandeep Rolle MD Discharge Disposition: Home or Self Care 01/04/2025 12:02 PM CDT - 01/04/2025 4:13 PM CDT [facility] [address] [place] [address] Sandeep Rolle MD 5, [facility] Cervical stenosis of spine Discharge Disposition: Home or Self Care 01/04/2025 External Device Data STL ABSTRACTION Provider, Abstract 01/03/2025 External Device Data STL ABSTRACTION Provider, Abstract 11/28/2024 2:05 PM CDT - 11/28/2024 11:59 PM CDT Hospital Encounter [facility] Medicine Radiology [address] [facility] [address] [place] [address] Sandeep Rolle MD Discharge Disposition: Home or Self Care from Last 3 Months Social History Tobacco Use Types Packs/Day Years Used Date Smoking Tobacco: Never Tobacco Cessation:Counseling Given: Not Answered Alcohol Use Standard Drinks/Week Comments Yes 0 (1 standard drink = 0.6 oz pur e alcohol) Comments Unknown Sex and Gender Information Value Date Recorded Sex Assigned at Not on file 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 Gender Identity Not on file Sexual Orientation Not on file Last Filed Vital Signs Vital Sign Reading Time Taken Comments Blood Pressure 132/60 02/08/2025 2:10 PM CDT Pulse 77 02/08/2025 2:10 PM CDT Temperature 36.4 C (97.6 F) 01/04/2025 3:56 PM CDT Respiratory Rate 20 01/04/2025 3:56 PM CDT Oxygen Saturation 100% 01/04/2025 3:56 PM CDT Inhaled Oxygen Concentration - - Weight 60.8 kg (134 lb) 02/08/2025 2:10 PM CDT Height 157.5 cm (5' 2) 02/08/2025 2:04 PM CDT Body Mass Index 24.51 02/08/2025 2:04 PM CDT Plan of Treatment Health Maintenance Due Date Last Done Comments FIT-DNA Q 3 years 1997 FIT/FOBT Q 1 year 1997 Flex Sig/CT Colonography Q 5 years 1997 ZOSTER VACCINE (1 of 2) 2002 PNEUMOCOCCAL VACCINE 50+ YEARS (2 of 2 - PCV) 11/16/19 08 11/15/2006 BREAST CANCER SCREENING 09/08/2009 09/08/2008 RSV VACCINE (60+ or ) (1 - Risk 60-74 years 1-dose series) 2012 DTAP/TDAP/TD VACCINES (2 - Td or Tdap) 11/15/2016 OSTEOPOROSIS SCREENING 2017 COLORECTAL SCREENING 10/23/2020 10/23/2010 Colorectal Cancer Screening 10/23/2020 Medicare Advantage ([place]) Prev entative Visit/Annual Wellness Visit 08/17/2024 INFLUENZA VACCINE (#1) 2025 Procedures Procedure Name Priority Date/Time Associated Diagnosis Comments ECHO COMPLETE Routine 02/24/2025 3:36 PM CDT PVC's (premature ventricular contractions) Preop cardiovascular exam MOBILE CARDIAC OUTPATIENT TELEMETRY Routine 02/14/2025 5:00 AM CDT PVC's (premature ventricular contractions) CT CERVICAL SPINE W CONTRAST Routine 01/04/2025 2:25 PM CDT Cervical stenosis of spine XR MYELOGRAM CERVICAL Routine 01/04/2025 2:22 PM CDT Cervical stenosis of spine XR CERVICAL SPINE MIN 6 VIEWS Routine 11/28/2024 2:23 PM CDT Spinal stenosis in cervical region from Last 3 Months Results * ECHO COMPLETE - CONTRAST AND STRAIN IF INDICATED (02/24/2025 3:36 PM CDT) EJECTION FRACTION 59 INTERFACE SYSTEM 02/24/2025 2:56 PM CDT Narrative INTERFACE SYSTEM - 02/25/2025 7:59 AM CDT [address] [address] [email or web address] Transthoracic Echocardiogram Patient: Pili Alvarenga Study ID: [id number] Gender: F : 1950 Age: 74 Race: [place] Height 157.5cm Study Date: 02/24/2025 Weight: 60.8kg Access. #: [id number] BP: 128 / 68 *Referring Physician:* Loc Rodriguez Robert *Ordering Physician:* Loc Rodriguez greens tier: Nurse: Indications: PVC's. Pre-op CV exam. History: PMH: HLD. Risk factors: Hypertension. STUDY CONCLUSIONS: SUMMARY: - Left ventricle: The cavity size [...] There is no evidence of hemodynamic compromise. Cardiac Anatomy: LEFT VENTRICLE: The cavity size was normal. Wall thickness was increased in a pattern of mild LVH. Global systolic function is normal. For Epic reporting: the left ventricular ejection fraction is 59% by biplane method of disks. Diastolic function assessment consistent with abnormal left ventricular relaxation (grade 1 diastolic dysfunction). AORTIC VALVE: Structurally normal valve. Trileaflet. No significant regurgitation. The mean systolic gradient is 2mm Hg. The peak systolic gradient is 4mm Hg. The LVOT to aortic valve VTI ratio is 0.83. The valve area is 2.9cm^2. The ratio of LVOT to aortic valve peak velocity is 0.95. AORTA: Aortic root: The root is normal-sized. MITRAL VALVE: Structurally normal valve. Mild regurgitation. The mean diastolic gradient is 1mm Hg. The peak diastolic gradient is 4mm Hg. LEFT ATRIUM: The atrium is normal in size. RIGHT VENTRICLE: The cavity size is normal. Systolic function is normal. PULMONIC VALVE: Structurally normal valve. No significant regurgitation. TRICUSPID VALVE: Structurally normal valve. Trivial regurgitation. PULMONARY ARTERY: Systolic pressure could not be accurately estimated. RIGHT ATRIUM: The atrium was normal in size. SYSTEMIC VEINS: Inferior vena cava: The IVC is normal-sized. PERICARDIUM: A small pericardial effusion is identified circumferential to the heart. The fluid has no internal echoes. There is no evidence of hemodynamic compromise. Measurements Left ventricle Value Ref IVS, ED, LAX (H) 1.1 cm 0.6 - 0.9 MONY, LAX (L) 3.1 cm 3.8 - 5.2 MONY/bsa, LAX (L) 1.9 cm/m^2 2.3 - 3.1 IVS, ED (H) 1.1 cm 0.6 - 0.9 PW, ED (H) 1.0 cm 0.6 - 0.9 EDV, 2-p (N) 83 ml 46 - 106 ESV, 2-p (N) 34 ml 14 - 42 EF, 2-p (N) 59 % 54 - 74 SV, 2-p 49 ml --------- SV/bsa, 2-p 30.6 ml/m^2 --------- E', lat shana, TDI (L) 7.0 cm/sec >=10.0 E/e', lat shana, TDI (N) 8 <=13 E', med shana, TDI (N) 8.7 cm/sec >=7.0 E/e', med shana, TDI 7 --------- E', avg, TDI 7.9 cm/sec --------- E/e', avg, TDI (N) 7 <=14 LVOT Value Ref Diam, S 2.1 cm --------- Area 3.5 cm^2 --------- Peak aniyah, S 0.99 m/sec --------- VTI, S 21.6 cm --------- Right ventricle Value Ref MONY minor ax, A4C base (N) 3.2 cm 2.5 - 4.1 MONY minor ax, A4C mid (N) 1.9 cm 1.9 - 3.5 MONY major ax, A4C (N) 6.8 cm 5.9 - 8.3 TAPSE, MM (N) 1.9 cm >=1.7 Pressure, S 9 mm Hg --------- S' lateral (N) 11.4 cm/sec >=9.5 Left atrium Value Ref AP dim, ES (H) 3.9 cm 2.7 - 3.8 AP dim index, ES (H) 2.4 cm/m^2 1.5 - 2.3 SI dim, A4C 4.4 cm --------- Area ES, A4C (N) 11 cm^2 <=20 Area/bsa ES, A4C 6.83 cm^2/m^2 --------- LA/Ao root ratio 1.15 --------- Right atrium Value Ref SI dim, ES, A4C (N) 4.4 cm 3.4 - 5.3 SI dim/bsa, ES, A4C (N) 2.7 cm/m^2 1.9 - 3.1 Area, ES, A4C (N) 11 cm^2 10 - 18 Vol, ES, 1-p A4C 24 ml --------- Vol/bsa, ES, 1-p A4C (N) 15 ml/m^2 9 - 33 Aortic valve Value Ref Peak v, S 1.1 m/sec --------- Mean v, S 0.71 m/sec --------- VTI, S 26.0 cm --------- Mean grad, S 2 mm Hg --------- Peak grad, S 4 mm Hg --------- LVOT/AV, VTI ratio 0.83 --------- ERIC, VTI 2.9 cm^2 --------- ERIC/bsa, VTI 1.78 cm^2/m^2 --------- LVOT/AV, Vpeak ratio 0.95 --------- ERIC, Vmax 2.9 cm^2 --------- ERIC/bsa, Vmax 1.83 cm^2/m^2 --------- Mitral valve Value Ref Mean v, D 0.41 m/sec --------- Peak E 0.58 m/sec --------- Peak A 0.91 m/sec --------- Decel time 306 ms --------- PHT 103 ms --------- Mean grad, D 1 mm Hg --------- Peak grad, D 4 mm Hg --------- Peak E/A ratio 0.6 --------- A-VTI 21.9 cm --------- MVA, PHT 2.1 cm^2 --------- MVA/bsa, PHT 1.33 cm^2/m^2 --------- Pulmonic valve Value Ref Peak v, S 0.88 m/sec --------- Peak grad, S 3 mm Hg --------- Tricuspid valve Value Ref TR peak v (N) 0.9 m/sec <=2.8 Peak RV-RA grad, S 4 mm Hg --------- Aortic root Value Ref Root diam, 3.4 cm --------- Ascending aorta Value Ref AAo AP diam, S 2.9 cm --------- AAo AP diam/bsa, S 1.8 cm/m^2 --------- Systemic veins Value Ref Estimated RA pressure 5 mm Hg --------- Legend: (L) and (H) estela values outside specified reference range. (N) aguirre values inside specified reference range. Procedure data: Procedure information: A transthoracic echocardiogram was performed. Scanning was performed from the parasternal, apical, and subcostal acoustic windows. Transthoracic echocardiogram. Complete 2D, complete spectral Doppler, and color Doppler. Birthdate: Patient birthdate: 1950. Age: Patient is 74year(s) old. Sex: gender: female. Height: 157.5cm. 62in. Weight: 60.8kg. 134lb. Body mass index: 24.5kg/m^2. Body surface area: 1.61m^2. Blood pressure: 128/68 Study date: Study date: 02/24/2025. Study time: 02:56 PM. Prepared and Electronically Authenticated Loc Rodriguez [id number] Procedure Note Loc Rodriguez MD - 02/25/[address] [place] [address] [email or web address] Transthoracic Echocardiogram Patient: Pili Alvarenga Study ID: [id number] Gender: F : 1950 Age: 74 Race: [place] Height 157.5cm Study Date: 02/24/2025 Weight: 60.8kg Access. #: [id number] BP: 128 / 68 *Referring Physician:Loc Julien Robert *Ordering Physician:Loc Julien greens tier: Nurse: Indications: PVC's. Pre-op CV exam. History: PMH: HLD. Risk factors: Hypertension. STUDY CONCLUSIONS: SUMMARY: - Left ventricle: The cavity size was normal. Wall thickness was increasedin a pattern of mild LVH. Global systolic function is normal. For Epic reporting: the left ventricular ejection fraction is 59% by biplanemethod of disks. Diastolic function assessment consistent with abnormal left ventricular relaxation (grade 1 diastolic dysfunction). - Mitral valve: Mild regurgitation. - Left atrium: The atrium is normal in size. - Right ventricle: The cavity size is normal. Systolic function isnormal. - Tricuspid valve: Trivial regurgitation. - Pulmonary arteries: Systolic pressure could not be accuratelyestimated. - Pericardium: A small pericardial effusion is identified circumferentialto the heart. The fluid has no internal echoes. There is no evidence of hemodynamic compromise. Cardiac Anatomy: LEFT VENTRICLE: The cavity size was normal. Wall thickness was increasedin a pattern of mild LVH. Global systolic function is normal. For Epicreporting: the left ventricular ejection fraction is 59% by biplane method ofdisks. Diastolic function assessment consistent with abnormal left ventricular relaxation (grade 1 diastolic dysfunction). AORTIC VALVE: Structurally normal valve. Trileaflet. No significant regurgitation. The mean systolic gradient is 2mm Hg. The peak systolic gradient is 4mm Hg. The LVOT to aortic valve VTI ratio is 0.83. The valvearea is 2.9cm^2. The ratio of LVOT to aortic valve peak velocity is 0.95. AORTA: Aortic root: The root is normal-sized. MITRAL VALVE: Structurally normal valve. Mild regurgitation. Themean diastolic gradient is 1mm Hg. The peak diastolic gradient is 4mm Hg. LEFT ATRIUM: The atrium is normal in size. RIGHT VENTRICLE: The cavity size is normal. Systolic function isnormal. PULMONIC VALVE: Structurally normal valve. No significantregurgitation. TRICUSPID VALVE: Structurally normal valve. Trivial regurgitation. PULMONARY ARTERY: Systolic pressure could not be accurately estimated. RIGHT ATRIUM: The atrium was normal in size. SYSTEMIC VEINS: Inferior vena cava: The IVC is normal-sized. PERICARDIUM: A small pericardial effusion is identified circumferentialto the heart. The fluid has no internal echoes. There is no evidence of hemodynamic compromise. Measurements Left ventricle Value Ref IVS, ED, LAX (H) 1.1 cm 0.6 - 0.9 MONY, LAX (L) 3.1 cm 3.8 - 5.2 MONY/bsa, LAX (L) 1.9 cm/m^2 2.3 - 3.1 IVS, ED (H) 1.1 cm 0.6 - 0.9 PW, ED (H) 1.0 cm 0.6 - 0.9 EDV, 2-p (N) 83 ml 46 - 106 ESV, 2-p (N) 34 ml 14 - 42 EF, 2-p (N) 59 % 54 - 74 SV, 2-p 49 ml --------- SV/bsa, 2-p 30.6 ml/m^2 --------- E', lat shana, TDI (L) 7.0 cm/sec >=10.0 E/e', lat shana, TDI (N) 8 <=13 E', med shana, TDI (N) 8.7 cm/sec >=7.0 E/e', med shana, TDI 7 --------- E', avg, TDI 7.9 cm/sec --------- E/e', avg, TDI (N) 7 <=14 LVOT Value Ref Diam, S 2.1 cm --------- Area 3.5 cm^2 --------- Peak aniyah, S 0.99 m/sec --------- VTI, S 21.6 cm --------- Right ventricle Value Ref MONY minor ax, A4C base (N) 3.2 cm 2.5 - 4.1 MONY minor ax, A4C mid (N) 1.9 cm 1.9 - 3.5 MONY major ax, A4C (N) 6.8 cm 5.9 - 8.3 TAPSE, MM (N) 1.9 cm >=1.7 Pressure, S 9 mm Hg --------- S' lateral (N) 11.4 cm/sec >=9.5 Left atrium Value Ref AP dim, ES (H) 3.9 cm 2.7 - 3.8 AP dim index, ES (H) 2.4 cm/m^2 1.5 - 2.3 SI dim, A4C 4.4 cm --------- Area ES, A4C (N) 11 cm^2 <=20 Area/bsa ES, A4C 6.83 cm^2/m^2 --------- LA/Ao root ratio 1.15 --------- Right atrium Value Ref SI dim, ES, A4C (N) 4.4 cm 3.4 - 5.3 SI dim/bsa, ES, A4C (N) 2.7 cm/m^2 1.9 - 3.1 Area, ES, A4C (N) 11 cm^2 10 - 18 Vol, ES, 1-p A4C 24 ml --------- Vol/bsa, ES, 1-p A4C (N) 15 ml/m^2 9 - 33 Aortic valve Value Ref Peak v, S 1.1 m/sec --------- Mean v, S 0.71 m/sec --------- VTI, S 26.0 cm --------- Mean grad, S 2 mm Hg --------- Peak grad, S 4 mm Hg --------- LVOT/AV, VTI ratio 0.83 --------- ERIC, VTI 2.9 cm^2 --------- ERIC/bsa, VTI 1.78 cm^2/m^2 --------- LVOT/AV, Vpeak ratio 0.95 --------- ERIC, Vmax 2.9 cm^2 --------- ERIC/bsa, Vmax 1.83 cm^2/m^2 --------- Mitral valve Value Ref Mean v, D 0.41 m/sec --------- Peak E 0.58 m/sec --------- Peak A 0.91 m/sec --------- Decel time 306 ms --------- PHT 103 ms --------- Mean grad, D 1 mm Hg --------- Peak grad, D 4 mm Hg --------- Peak E/A ratio 0.6 --------- A-VTI 21.9 cm --------- MVA, PHT 2.1 cm^2 --------- MVA/bsa, PHT 1.33 cm^2/m^2 --------- Pulmonic valve Value Ref Peak v, S 0.88 m/sec --------- Peak grad, S 3 mm Hg --------- Tricuspid valve Value Ref TR peak v (N) 0.9 m/sec <=2.8 Peak RV-RA grad, S 4 mm Hg --------- Aortic root Value Ref Root diam, 3.4 cm --------- Ascending aorta Value Ref AAo AP diam, S 2.9 cm --------- AAo AP diam/bsa, S 1.8 cm/m^2 --------- Systemic veins Value Ref Estimated RA pressure 5 mm Hg --------- Legend: (L) and (H) estela values outside specified reference range. (N) aguirre values inside specified reference range. Procedure data: Procedure information: A transthoracic echocardiogram was performed.Scanning was performed from the parasternal, apical, and subcostal acousticwindows. Transthoracic echocardiogram. Complete 2D, complete spectralDoppler, and color Doppler. Birthdate: Patient birthdate: 1950. Age:Patient is 74year(s) old. Sex: gender: female. Height: 157.5cm. 62in. Weight: 60.8kg. 134lb. Body mass index: 24.5kg/m^2. Body surfacearea: 1.61m^2. Blood pressure: 128/68 Study date: Study date:02/24/2025. Study time: 02:56 PM. 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 HR ranged [...] 16,835 PVCs with PVC burden of 5% Electronically Signed On 02-16-2025 17:32:42 CDT by Robinson Whittington us Loc Rodriguez MD CARDIAC SERVICES ORDERABLES Final Result INTERFACE SYSTEM Refer to clinic/hospital department * CT CERVICAL SPINE W CONTRAST (01/04/2025 2:25 PM CDT) Anatomical Region Laterality Modality Spine Computed Tomogra phy 01/04/2025 2:18 PM CDT Impressions 01/04/2025 5:12 PM CDT IMPRESSION: 1. Multilevel facet degenerative changes in the cervical spine as detailed in the findings with a prominent rightward curvature of the cervical spine. Overall degenerative changes are similar to prior MRI. Further details are provided the findings. Clinical correlation needed. DICTATION LOCATION: Location 1 - [facility] 01/04/2025 5:[address] CERVICAL SPINE WITH INTRATHECAL CONTRAST WITH REFORMATTED IMAGES (POST MYELOGRAM) DATE: 01/04/2025 2:25 PM HISTORY: See Diagnosis. Cervical stenosis of spine COMPARISON: MRI on 1124 TECHNIQUE: Multislice helical axial imaging with multiplanar reformats utilizing intrathecal Isovue M200 administered during a myelogram procedure, which is dictated separately. The examination was performed with the adjustment of mA according to the patient size and/or the use of Iterative Reconstruction Technique. FINDINGS: Redemonstrated rightward curvature of the cervical spine. There is 2 mm anterolisthesis of C5 on C6 and C6 and C7. Vertebral bodies are normal in height without evidence of acute fracture. Moderate/severe disc height loss at C5-C6 and C6-C7. No soft tissue abnormality is identified. C2-3: There is posterior disc osteophyte complex eccentric to the left resulting in mild spinal canal narrowing with flattening of the left ventral aspect of the spinal cord. There is severe left neural foraminal narrowing and no significant right neural foraminal narrowing. C3-4: Posterior disc osteophyte complex eccentric to the left causing minimal spinal canal narrowing. There is severe left neural foraminal narrowing and no significant right neural foraminal narrowing. There is facet degenerative change in the left. C4-5: Mild posterior disc osteophyte complex eccentric to the left as well as facet degenerative change resulting in severe left neural foraminal narrowing and no significant right neural foraminal narrowing C5-6: Posterior disc osteophyte complex causing mild spinal canal narrowing contacting and flattening the ventral aspect of the spinal cord. There is left facet degenerative change. There is severe left and no significant right neural foraminal narrowing. C6-7: Posterior disc osteophyte complex contacting and mildly flattening the ventral aspect of the spinal cord. There is left facet degenerative change. There is no significant neural foraminal narrowing. C7-T1: Posterior disc osteophyte complex effacing flattening the left ventral aspect spinal cord resulting in mild spinal canal narrowing. There is no significant right neural foraminal narrowing. There is likely severe left neural foraminal narrowing. Procedure Note Farzad rBandon MD - 01/04/2025 CT CERVICAL SPINE WITH INTRATHECAL CONTRAST WITH REFORMATTED IMAGES (POST MYELOGRAM) DATE: 01/04/2025 2:25 PM HISTORY: See Diagnosis. Cervical stenosis of spine COMPARISON: MRI on 1124 TECHNIQUE: Multislice helical axial imaging with multiplanar reformats utilizing intrathecal Isovue M200 administered during a myelogram procedure, which is dictated separately. The examination was performed with the adjustment of mA according to the patient size and/or the use of Iterative Reconstruction Technique. FINDINGS: Redemonstrated rightward curvature of the cervical spine. There is 2 mm anterolisthesis of C5 on C6 and C6 and C7. Vertebral bodies are normal in height without evidence of acute fracture. Moderate/severe disc height loss at C5-C6 and C6-C7. No soft tissue abnormality is identified. C2-3: There is posterior disc osteophyte complex eccentric to the left resulting in mild spinal canal narrowing with flattening of the left ventral aspect of the spinal cord. There is severe left neural foraminal narrowing and no significant right neural foraminal narrowing. C3-4: Posterior disc osteophyte complex eccentric to the left causing minimal spinal canal narrowing. There is severe left neural foraminal narrowing and no significant right neural foraminal narrowing. There is facet degenerative change in the left. C4-5: Mild posterior disc osteophyte complex eccentric to the left as well as facet degenerative change resulting in severe left neural foraminal narrowing and no significant right neural foraminal narrowing C5-6: Posterior disc osteophyte complex causing mild spinal canal narrowing contacting and flattening the ventral aspect of the spinal cord. There is left facet degenerative change. There is severe left and no significant right neural foraminal narrowing. C6-7: Posterior disc osteophyte complex contacting and mildly flattening the ventral aspect of the spinal cord. There is left facet degenerative change. There is no significant neural foraminal narrowing. C7-T1: Posterior disc osteophyte complex effacing flattening the left ventral aspect spinal cord resulting in mild spinal canal narrowing. There is no significant right neural foraminal narrowing. There is likely severe left neural foraminal narrowing. IMPRESSION: 1. Multilevel facet degenerative changes in the cervical spine as detailed in the findings with a prominent rightward curvature of the cervical spine. Overall degenerative changes are similar to prior MRI. Further details are provided the findings. Clinical correlation needed. DICTATION LOCATION: Location [address] [place] [address] ORDERABLES Final Result * XR MYELOGRAM CERVICAL (01/04/2025 2:22 PM CDT) Anatomical Region Laterality Modality Spine Computed Radiogr aphy 01/04/2025 2:23 PM CDT Impressions 01/04/2025 3:34 PM CDT IMPRESSION: 1. Successful lumbar puncture with intrathecal contrast injection for CT cervical myelogram. Please see complete CT cervical myelogram report for full details. DICTATION LOCATION: Location [address] [place] [address] Narrative 01/04/2025 3:34 PM CDT LUMBAR PUNCTURE FOR CERVICAL MYELOGRAM CERVICAL MYELOGRAM DATE: 01/04/2025 2:22 PM HISTORY: See Diagnosis. Cervical stenosis of spine COMPARISON: None. TECHNIQUE: Following a detailed discussion of risks and benefits of the procedure, written informed consent was obtained. The patient was placed in the prone position on the fluoroscopy table. The lower back was prepped and draped in sterile fashion. Local anesthesia was provided with 1% lidocaine. Using fluoroscopic guidance a 22-gauge 3.5 inch spinal needle was advanced into the thecal sac in the right parasagittal location at the level of L4-L5. Clear Approximately 8 cc of Isovue 300 M was slowly injected into the thecal sac under fluoroscopy. The needle was removed and a sterile bandage was applied. The patient was then placed in a Trendelenburg position and contrast flowed into the cervical spine via gravity. Spot radiographs and overhead radiographs were obtained. The patient tolerated the procedure well without immediate complications. The patient was sent for postmyelogram CT followed by 2 hours bed rest. FLUOROSCOPY TIME: 2.5min Reference air kerma: 26.2 mGy FINDINGS: Contrast flows readily through the lumbar and thoracic spine. No evidence of myelographic block. Procedure Note Farzad Brandon MD - 01/04/2025 LUMBAR PUNCTURE FOR CERVICAL MYELOGRAM CERVICAL MYELOGRAM DATE: 01/04/2025 2:22 PM HISTORY: See Diagnosis. Cervical stenosis of spine COMPARISON: None. TECHNIQUE: Following a detailed discussion of risks and benefits of the procedure, written informed consent was obtained. The patient was placed in the prone position on the fluoroscopy table. The lower back was prepped and draped in sterile fashion. Local anesthesia was provided with 1% lidocaine. Using fluoroscopic guidance a 22-gauge 3.5 inch spinal needle was advanced into the thecal sac in the right parasagittal location at the level of L4-L5. Clear Approximately 8 cc of Isovue 300 M was slowly injected into the thecal sac under fluoroscopy. The needle was removed and a sterile bandage was applied. The patient was then placed in a Trendelenburg position and contrast flowed into the cervical spine via gravity. Spot radiographs and overhead radiographs were obtained. The patient tolerated the procedure well without immediate complications. The patient was sent for postmyelogram CT followed by 2 hours bed rest. FLUOROSCOPY TIME: 2.5min Reference air kerma: 26.2 mGy FINDINGS: Contrast flows readily through the lumbar and thoracic spine. No evidence of myelographic block. IMPRESSION: 1. Successful lumbar puncture with intrathecal contrast injection for CT cervical myelogram. Please see complete CT cervical myelogram report for full details. DICTATION LOCATION: Location 1 - [facility] Sandeep Rolle MD DIAGNOSTIC IMAGING ORDERABLES F inal Result * XR CERVICAL SPINE MIN 6 VIEWS (11/28/2024 2:23 PM CDT) Anatomical Region Laterality Modality Spine Computed Radiogr aphy 11/28/2024 2:23 PM CDT Impressions 11/28/2024 2:41 PM CDT IMPRESSION: Cervical spondylosis. C6-7 anterolisthesis increases slightly in flexion. Osteopenia. DICTATION LOCATION: Location 4 Narrative 11/28/2024 2:41 PM CDT XR CERVICAL SPINE MIN 6 VIEWS DATE: 11/28/2024 HISTORY: Spinal stenosis in cervical region. FINDINGS: In extension there is a 2.6 mm anterolisthesis at C6-7. In flexion this is about 2.7 mm. There is narrowing of the C5-6 and C6-7 intervertebral disc spaces. Extensive facet joint hypertrophy is seen left greater than right. Left C6-7 and C5-6 neural foramina have some encroachment due to osteophytes. Right C2-3 and C3-4, C4-5 neural foramina show narrowing. No fracture or dislocation is seen. Predental space appears narrowed. Procedure Note Jan Guerra MD - 11/28/2024 XR CERVICAL SPINE MIN 6 VIEWS DATE: 11/28/2024 HISTORY: Spinal stenosis in cervical region. FINDINGS: In extension there is a 2.6 mm anterolisthesis at C6-7. In flexion this is about 2.7 mm. There is narrowing of the C5-6 and C6-7 intervertebral disc spaces. Extensive facet joint hypertrophy is seen left greater than right. Left C6-7 and C5-6 neural foramina have some encroachment due to osteophytes. Right C2-3 and C3-4, C4-5 neural foramina show narrowing. No fracture or dislocation is seen. Predental space appears narrowed. IMPRESSION: Cervical spondylosis. C6-7 anterolisthesis increases slightly in flexion. Osteopenia. DICTATION LOCATION: Location 4 Sandeep Rolle MD DIAGNOSTIC IMAGING ORDERABLES F inal Result from Last 3 Months Insurance [facility] [address] [address] Member Subscriber Plan / Payer (Ef fective 2024-Present) Name:Pili Alvarenga Relation to Subscriber:Self Name:Pili Alvarenga Payer ID:[id number] (NAIC) Type:PPO Address: [place] [id number]
--- OUTSIDE RECORDS SUMMARY | 2025-02-27 18:53 | XMS_ITS | Referral Summary ---
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 Gender Identity Not on file Sexual Orientation [...] CDT s tated Height 157.5 cm (5' 2) 10/25/2024 1:20 PM CDT s tated Body Mass Index 24.14 10/25/2024 1:20 PM CDT Plan of Treatment Not on file Insurance [id number] [place] [address] [facility]ICARE [facility] Address: [address] [address] [place] [address] MEDICARE [facility] Address: [address] [address] [place] [address] [facility] HMO/PPO Address: [facility] [address] [place] [address] [facility] [place] [address] Care Teams Resaw Carriage Operator Relationship Specialty Start Date End Date Avelina Coronel MD [address] [address] PCP - General 02/15/13
--- OUTSIDE RECORDS SUMMARY | 2025-02-27 18:53 | XMS_ITS | Clinical Summary ---
Author Organization [facility] Address [address] [place] [address] Care Team Providers Care Rim Buster Name Role Phone Avelina Coronel MD Primary Care Provider + Lobo Mcarthur MD Unavailable [phone] Source Comments [facility],non-owned Affiliates and Associated Physician Practices is amultiple site organization consisting of ambulatory clinics and hospital sitesin [place], [place], [place] and [place]. This disclosure is being madepursuant to the Care Everywhere program and may not contain all information available regarding this patient. Last updated 18.[facility] Allergies No known active allergies Medications * Be aware that medications may not be up to date on this document. Alwaysverify current medications with the patient. multivitamins (ONE A DAY) tablet Take 1 Tab by mouth daily. Active GLUCOSAMINE CHONDRO COMPLEX PO Take by mouth daily. Active aspirin 81 MG tablet Take 81 mg by mouth daily. With food Active PSYLLIUM POIndications:f iber supplement Take by mouth once daily Reasons: fiber supplement Active amlodipine (NORVASC) 5 MG tabletIndicatio ns:Hypertension ,Fear of,Bronchiectas is,Hyperglycemi a Take 1 Tab by mouth daily. 90 3 9 Active docusate sodium (COLACE) 100 MG capsule Take 1 Cap by mouth once daily as needed for Constipation. 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 Diverticulosis () 07/20/2008 Laryngopharyngeal Reflux causing a recurrent cou gh 07/20/2008 Bronchiectasis 07/20/2008 Hyperglycemia 07/20/2008 Immunizations Immunization Administration Dates Next Due INFLUENZA VACCINE 05/01/2009,06/17/2008,06/17/20 [...] = 0.6 oz p ure alcohol) socially Comments No Sex and Gender Information Value Date Recorded Sex Assigned at Not on file Legal Sex Female 6:52 AM WASHER CARCASS Gender Identity Not on file Sexual Orientation Not on file Last Filed Vital Signs Vital Sign Reading Time Taken Comments Blood Pressure 124/60 08/24/2019 1:09 PM WASHER CARCASS Pulse 84 08/24/2019 1:09 PM WASHER CARCASS Temperature 37.1 C (98.7 F) 08/24/2019 1:09 PM WASHER CARCASS Respiratory Rate 18 03/06/2017 8:58 AM CDT Oxygen Saturation 98% 08/24/2019 1:09 PM WASHER CARCASS Inhaled Oxygen Concentration 98% 10/23/2010 1 :18 PM WASHER CARCASS Weight 59.9 kg (132 lb) 08/24/2019 1:09 PM WASHER CARCASS Height 154.9 cm (5' 1) 03/04/2017 3:30 PM CDT Body Mass Index [...] season) 2024 DEPRESSION SCREENING 08/17/2024 INFLUENZA VACCINE (#1) 2025 9, 06/17/2008, 06/17/2007 Respiratory Syncytial Virus (RSV) Vaccine [...] Maintenance Results * ENDOSCOPY, COLON, SCREENING (10/23/2010) us Ryne Naylor MD GI PROCEDURE ORDERABLES Final Re sult * MAMMO SCREENING DIGITAL IMAGE BILAT (09/08/2008) Anatomical Region Laterality Modality Breast Bilateral Other us Brittnee Us MD MAMMO ORDERABLES Final Result from Last 3 Months or Most Recently Relevant to Health Maintenance Insurance MEDICARE [facility] Advance Directives * Full Code (Latest Code Status on File) Date Activated Date Inactivated Comments 03/04/2017 11:00 PM 03/06/2017 12:06 PM Care Teams Rim Buster Relationship Specialty Start Date End Date Avelina Coronel MD PCP - General Internal Medicine 08/29/10 Lobo Mcarthur MD [facility] [address] Laboratory Geneticist Cardiology 08/24/19
--- OUTSIDE RECORDS SUMMARY | 2025-02-27 18:53 | XMS_ITS ---
Author Organization [facility], Address [address] [place] [address] Care Team Providers Care Program Eligibility Specialist Name Role Phone Avelina Coronel Primary Care Provider Alonso Toussaint Unavailable [phone] ALLERGIES No Known Allergies REASON FOR REFERRAL [...] Active confirmed Cervical disc disorder with radiculopathy (031118963) VITAL SIGNS BMI 24.56 kg/m2 09/14/2024 Height 61 in 09/14/2024 Weight 130 lbs 09/14/2024 Encounters Encounter Location Date Provider Diagnosis [facility] [address] [place] [address] 09/14/2024 Alonso Bourne Cervical disc disord er [...] and treat, exercise, modalities per therapist's discretion; [facility] Progress Notes * Examination Category Sub-Category Detail [...]
--- OUTSIDE RECORDS SUMMARY | 2025-02-27 18:53 | XMS_ITS | Clinical Summary ---
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
--- OUTSIDE RECORDS SUMMARY | 2025-02-27 18:53 | XMS_ITS | Encounter Summary ---
Author Organization [facility] Address [address] [place] [address] Care Team Providers Care Milk Runner Name Role Phone Unavailable Primary Care Provider Unavailabl e Encounter Details Date Type Department Care Team (Late st Contact Info) Description 02/27/2025 Results Follow-Up [facility] [address] [place] [address] Aleah Peralta, RN ECHO COMPLETE - CONTRAST AND STRAIN IF INDICATED Social History Tobacco Use Types Packs/Day Years Used Date Smoking Tobacco: Never Alcohol Use Standard Drinks/Week Comments Yes 0 (1 standard drink = 0.6 oz pur e alcohol) Comments Unknown Sex and Gender Information Value Date Recorded Sex Assigned at Not on file Legal Sex Female 7:24 PM RENAL CASE MANAGER Gender Identity Not on file Sexual Orientation Not on file documented as of this encounter Plan of Treatment Not on file documented as of this encounter Visit Diagnoses Not on filedocumented in this encounter
--- OUTSIDE RECORDS SUMMARY | 2025-02-27 18:53 | XMS_ITS ---
Author Organization [facility] Address [address] [facility] [address] [place] [address] Care Team Providers Care Adult Education Teacher Name Role Phone Avelina Coronel Primary Care Provider Alonso Toussaint Unavailable [phone] REASON FOR VISIT Cervical Encounters Encounter Location Date Provider Diagnosis [facility] [address] [facility] [address] [place] [address] 09/12/2024 Alonso Bourne PLAN OF TREATMENT No Information
--- OUTSIDE RECORDS SUMMARY | 2025-02-27 18:53 | XMS_ITS | Patient Health Record ---
Author Organization [facility] Address [address] [place] [address] Care Team Providers Care Disability Representative Name Role Phone Avelina Coronel Primary Care Provider Alonso Toussaint Unavailable [phone] ALLERGIES No Known Allergies RESULTS Component Value Reference Range Notes X ray : Cervical Spine 7 vie ws, AP, Lateral, Swimmers, Obliques, Flexion and Extension Reviewed date:08/31/2024 11:13:42 AM Interpretation:1020 Performing Lab: Notes/Report: 1020 EMG, NCV, Bilateral, Upper E xtremity, Consultative EDX & Evaluate Symptoms Reviewed date:09/16/2024 01:55:45 PM Interpretation:[facility] geha fed retiree medicare ppo Performing Lab: Notes/Report: [facility] geha fed retiree medicare ppo REASON FOR REFERRAL Reason DIAGNOSES: neck pain , radiculopathy, HNP, spinal stenosis, DDD, shoulder pain, scoliosis 3 times per week for 3 weeks eval and treat, exercise, modalities per therapist's discretion; [facility] Referral Organization [facility] Referring [...] nt of cervical intervertebral disc without myelopathy (36556717) Problem DDD (degenerative disc disease), cervical (M50.30) Active confirmed Cervical d isc disorder (274437501) Problem Scoliosis (M41.9) Active confirmed Scol iosis (651269403) Problem Facet arthritis, degenerative, 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) Active confirmed Cervical spondylosis without myelopathy (554421624) Problem Cervical disc disorder with radiculopathy (M50.10) Active confirmed Cervical disc disorder with radiculopathy (849316881) VITAL SIGNS Height 61 in 09/14/2024 Weight 130 lbs 09/14/2024 BMI 24.56 kg/m2 09/14/2024 PROCEDURES Procedure Date Ordered Date Performed Result Body Sit e Cervical Epidural Steroid Injection 08/31/2024 08/31/2024 [facility] no auth Encounters Encounter Location Date Provider Diagnosis [facility] [address] [address] 09/12/2024 Alonso Bourne [facility] [address] [address] 08/31/2024 Alonso Bourne Cervical radiculopat hy M54.12 ; HNP (herniated nucleus pulposus), cervical M50.20 ; DDD (degenerative disc disease), cervical M50.30 ; Scoliosis M41.9 ; Facet arthritis, degenerative, cervical spine M47.812 ; Left shoulder pain M25.512 and Cervical spinal stenosis M48.02 [facility] [address] [address] 09/14/2024 Alonso Bourne Cervical disc disord er with radiculopathy M50.10 ; Cervical spinal stenosis M48.02 ; DDD (degenerative disc disease), cervical M50.30 ; Scoliosis M41.9 ; Facet arthritis, degenerative, cervical spine M47.812 and Left shoulder pain M25.512 [facility] [address] [place] [address] 10/26/2024 Alonso Buorne ASSESSMENTS Encounter Date Diagnosis Assessment Notes Treatment [...] Insured Coverage Start Date Coverage End Date [facility] Medicare Advantage PPO [address] [address] [place] [address] [id number] Pili Moran Self - patient is the insured MEDICAL (GENERAL) HISTORY Medical History History ICD Code Hypertension Neck pain Denies h/o emotional/psychiatric disorde r Denies h/o drug/chemical dependency Surgical History Surgery Date(Month/Year) Hysterectomy 1998 Right rotator cuff tear 2011
[2025-02-27 19:01] VITALS: BP 142/92; PULSE 76; RESP 18; TEMP 36.7; O2SAT 98
--- NOTE | 2025-02-27 20:16 | ED_ITS ---
HPI - Extremity Injury (Lower) General Chief Complaint: Extremity Injury, Lower Stated Complaint: left toe injury Time Seen by Provider: 02/27/25 20:11 History of Present Illness HPI Narrative: 74-year-old female presents to the emergency department for left 5th toe pain. Patient states she accidentally stubbed her toe on a caroline in the basement this evening. She is reporting pain to the left 5th toe. States it was deformed which she franc tape the toe with improvement. No other injuries. Related Data Home Medications ?Medication ?Instructions ?Recorded ?Confirmed ?Last Taken ?Type amlodipine 5 mg tablet 5 mg PO DAILY 02/06/21 02/06/21 02/19/21 History ascorbic acid (vitamin C) 500 mg 500 mg PO DAILY 02/06/21 02/06/21 02/18/21 History tablet aspirin 81 mg tablet 81 mg PO DAILY 02/06/21 02/06/21 02/18/21 History cholecalciferol (vitamin D3) 25 25 mcg PO DAILY 02/06/21 02/06/21 02/18/21 History mcg (1,000 unit) tablet (Vitamin D3) fiber 1 cap PO DAILY 02/06/21 02/06/21 02/18/21 History potassium chloride 20 mEq 20 meq PO DAILY 02/06/21 02/06/21 02/18/21 History tablet,extended release rosuvastatin 5 mg tablet 5 mg PO DAILY 02/06/21 02/06/21 02/19/21 History Allergies Allergy/AdvReac Type Severity Reaction Status Date / Time No Known Allergies Allergy Verified 02/27/25 19:04 Review of Systems Review of Systems: All systems reviewed & are unremarkable except as noted in HPI and below PMFSH Past Medical History Medical History Hypertension Hyperlipidemia Social History Social History Smoking status: Former smoker Tobacco type: cigarettes Alcohol intake: current Drinks per week: 7 Living arrangements: with family Spiritual care concerns: No Exam Narrative: GENERAL: Well-appearing, well-nourished, and in no acute distress. HEAD: Normocephalic, atraumatic. EYES:EOMI. ENT: Nares clear, no rhinorrhea or epistaxis. Mucous membranes moist. NECK: Supple. CHEST: Clear to auscultation. No respiratory distress. HEART: Regular rate and rhythm. No murmur heard. Normal peripheral pulses. EXTREMITIES: LLE: Tenderness to the left 5th MTP and proximal phalanx with mild overlying edema. No obvious deformity. No tenderness remainder of foot or ankle. DP pulses 2+. Sensation intact throughout. Cap refill less than 2. Patient able to wiggle toes. Compartments to the foot are soft SKIN: Warm, dry, no rash. NEURO: No focal deficits. Alert and oriented x3 Course Vital Signs Vital signs: Vital Signs Temperature 98.1 F 02/27/25 19:01 Pulse Rate 76 02/27/25 19:01 Respiratory Rate 18 02/27/25 19:01 Blood Pressure 142/92 H 02/27/25 19:01 Pulse Oximetry 98 02/27/25 19:01 Oxygen Delivery Room Air 02/27/25 19:01 Temperature 98.1 F 02/27/25 19:01 Pulse Rate 76 02/27/25 19:01 Respiratory Rate 18 02/27/25 19:01 Blood Pressure 142/92 H 02/27/25 19:01 Pulse Oximetry 98 02/27/25 19:01 Oxygen Delivery Room Air 02/27/25 19:01 MDM - Extremity Injury (Lower) MDM Narrative Medical decision making narrative: 74-year-old female presents emergency department for left 5th toe pain after stubbing it prior to arrival. See HPI for further history. Vitals with elevated blood pressure, otherwise unremarkable. Exam is notable for tenderness to the left 5th toe and MTP. She is neurovascularly intact. X-ray show mildly angulated fracture of the left 5th proximal phalanx. Patient updated on results. Her 4th and 5th toes were franc taped and she was given a postop shoe and Podiatry follow-up. Encouraged Tylenol and NSAIDs for pain control. Discussed strict ED return precautions. She is agreeable with the plan and verbalized understanding. Discharged in stable condition. Discharge Plan Discharge Clinical Impression: Fracture of toe of left foot Qualifiers: Encounter type: initial encounter Toe: lesser toe Fracture type: closed Phalanx: proximal Fracture alignment: nondisplaced Qualified Code(s): S92.515A - Nondisplaced fracture of proximal phalanx of left lesser toe(s), initial encounter for closed fracture Patient Disposition: Home Condition: Stable Instructions: Antibiotic Form, Toe Fracture (ED) Additional Instructions: Please rest, keep your toes franc-taped, ice, elevate. Follow-up closely with a bioinformatics support specialist. Take Tylenol ibuprofen as needed for pain as directed on the bottle [id number]. Return to the emergency department if he develops significantly worsening pain or other concerning symptoms. Patient Language: Telugu Prescriptions: No Action amlodipine 5 mg tablet 5 mg PO DAILY ascorbic acid (vitamin C) 500 mg Tablet 500 mg PO DAILY Adult Low Dose Aspirin 81 mg Tablet 81 mg PO DAILY fiber Capsule 1 cap PO DAILY rosuvastatin 5 mg tablet 5 mg PO DAILY cholecalciferol (vitamin D3) [Vitamin D3] 25 mcg (1,000 unit) Tablet 25 mcg PO DAILY potassium chloride 20 mEq Tablet Extended Release 20 meq PO DAILY Follow-up/Referrals: Jeevan Boland Jr., DPM [Physician] - PHYSICIAN NOT ON STAFF,NONSTAFF [Primary Care Provider] -
--- OUTSIDE RECORDS SUMMARY | 2025-02-27 20:32 | XMS_ITS | Clinical Summary ---
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
--- OUTSIDE RECORDS SUMMARY | 2025-02-27 20:32 | XMS_ITS | Clinical Summary ---
Author Organization [facility] [employer] Address [address] [place] [address] Care Team Providers Care Kitchen Helper Name Role Phone Avelina Coronel MD Primary Care Provider + Lobo Mcarthur MD Unavailable [phone] Source Comments [facility] [employer],non-owned Affiliates and Associated Physician Practices is amultiple site organization consisting of ambulatory clinics and hospital sitesin [place], [place], [place] and [place]. This disclosure is being madepursuant to the Care Everywhere program and may not contain all information available regarding this patient. 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 Gender Identity Not on file Sexual Orientation Not on file Last Filed Vital Signs Vital Sign Reading Time Taken Comments Blood Pressure 124/60 08/24/2019 1:09 PM ASP NET SOFTWARE DEVELOPER Pulse 84 08/24/2019 1:09 PM ASP NET SOFTWARE DEVELOPER Temperature 37.1 C (98.7 F) 08/24/2019 1:09 PM ASP NET SOFTWARE DEVELOPER Respiratory Rate 18 03/06/2017 8:58 AM CDT Oxygen Saturation 98% 08/24/2019 1:09 PM ASP NET SOFTWARE DEVELOPER Inhaled Oxygen Concentration 98% 10/23/2010 1 :18 PM ASP NET SOFTWARE DEVELOPER Weight 59.9 kg (132 lb) 08/24/2019 1:09 PM ASP NET SOFTWARE DEVELOPER Height 154.9 cm (5' 1) 03/04/2017 3:30 [...] Recently Relevant to Health Maintenance Insurance MEDICARE [facility] Advance Directives * Full Code (Latest Code Status on File) Date Activated Date Inactivated Comments 03/04/2017 11:00 PM 03/06/2017 12:06 PM Care Teams Kitchen Helper Relationship Specialty Start Date End Date Avelina Coronel MD PCP - General Internal Medicine 08/29/10 Lobo Mcarthur MD [facility] [address] Sign Writer Letterer Or Painter Cardiology 08/24/19
--- OUTSIDE RECORDS SUMMARY | 2025-02-27 20:32 | XMS_ITS | Referral Summary ---
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 Gender Identity Not on file Sexual Orientation [...] Plan of Treatment Not on file Insurance [id number] [place] [address] MEDICARE ADVANTAGE [facility] MEDICARE Address: [address] [address] [place] [address] MEDICARE [facility] HMO/PPO Address: [facility] [address] [place] [address] [facility] [place] [place] [address] Care Teams Stratigraphy Teacher Relationship Specialty Start Date End Date Avelina Coronel MD [address] [address] PCP - General 02/15/13
--- OUTSIDE RECORDS SUMMARY | 2025-02-27 20:32 | XMS_ITS | Encounter Summary ---
Author Organization [facility] Address [address] [place] [address] Care Team Providers Care State Pilot Name Role Phone Unavailable Primary Care Provider Unavailabl e Reason for Visit * Reason Onset Date Comments Echo Results 02/27/2025 MCOT Results 02/27/2025 Surgical Clearance 02/27/2025 Encounter Details Date Type Department Care Team (Late st Contact Info) Description 02/27/2025 Telephone [facility] Heart and Vascular At [facility] [address] [facility] [place] [id number] Murali Rodriguez MD [address] [address] [facility] [address] [place] [address] Echo Results; MCOT Results; Surgical Clearance Social History Tobacco Use Types Packs/Day Years Used Date Smoking Tobacco: Never Alcohol Use Standard Drinks/Week Comments Yes 0 (1 standard drink = 0.6 oz pur e alcohol) Comments Unknown Sex and Gender Information Value Date Recorded Sex Assigned at Not on file 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
--- OUTSIDE RECORDS SUMMARY | 2025-02-27 20:32 | XMS_ITS | Clinical Summary ---
Author Organization [employer] [facility] Address [address] [place] [address] Care Team Providers Care Voice Over Announcer Name Role Phone Unavailable Primary Care Provider [...] Type Department Care Team Description 02/27/2025 Telephone [facility] Heart and Vascular At [address] [place] [address] Loc Rodriguez MD Echo Results; MCOT Results; Surgical Clearance 02/27/2025 Results Follow-Up [facility] Heart and Vascular At [address] [place] [address] Aleah Peralta RN ECHO COMPLETE - CONTRAST AND STRAIN IF INDICATED 02/24/2025 2:46 PM CDT - 02/24/2025 11:59 PM CDT Hospital Encounter [facility] Diagnostic Cardiology Services [address] [place] [address] Loc Rodriguez MD Arrived Discharge Disposition: Home or Self Care 02/08/2025 1:45 PM CDT Office Visit [facility] Heart and Vascular At [facility] [address] [facility] [address] [place] [address] Loc Rodriguez MD Preop cardiovascular exam (Primary Dx); PVC's (premature ventricular contractions); Benign hypertension; Pure hypercholesterolemia 02/08/2025 8:30 AM CDT - 02/08/2025 11:59 PM CDT Hospital Encounter [facility] Non Invasive Cardiology [address] [place] [address] Loc Rodriguez MD Discharge Disposition: Home or Self Care 01/31/2025 External Device Data STL ABSTRACTION Provider, Abstract 01/05/2025 External Device Data [facility] ABSTRACTION Provider, Abstract 01/04/2025 1:40 PM CDT - 01/04/2025 11:59 PM CDT Hospital Encounter [facility] CT Scan S [facility] [address] [place] [address] Sandeep Rolle MD Discharge Disposition: Home or Self Care 01/04/2025 12:02 PM CDT - 01/04/2025 4:13 PM CDT [facility] [address] [place] [address] Sandeep Rolle MD [address], [facility] Cervical stenosis of spine Discharge Disposition: Home or Self Care 01/04/2025 External Device Data ST[facility] ABSTRACTION Provider, Abstract 01/03/2025 External Device Data [facility] ABSTRACTION Provider, Abstract 11/28/2024 2:05 PM CDT - 11/28/2024 11:59 PM CDT Hospital Encounter 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 #: [id number] BP: 128 / 68 *Referring Physician:* Loc Rodriguez Robert *Ordering Physician:* Loc Rodriguez tool and die manager: Nurse: Indications: PVC's. Pre-op CV exam. History: [...] PM. Prepared and Electronically Authenticated Loc Rodriguez [id number] Procedure Note Loc Rodriguez MD - 02/25/[address] [place] [address] [email or web address] Transthoracic Echocardiogram Patient: Pili Alvarenga Study ID: [id number] Gender: F : 1950 Age: 74 Race: AKILAH Height 157.5cm Study Date: 02/24/2025 Weight: 60.8kg Access. #: [id number] BP: 128 / 68 *Referring Physician:Loc Julien Robert *Ordering Physician:Loc Julien tool and die manager: Nurse: Indications: PVC's. Pre-op CV exam. History: [...] PM. 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 DICTATION LOCATION: Location 1 - [facility] 01/04/2025 5:[address] CERVICAL SPINE [...] left neural foraminal narrowing. Procedure Note Farzad Brandon MD - 01/04/2025 CT CERVICAL SPINE WITH [...] findings. Clinical correlation needed. DICTATION LOCATION: Location [address] [place] [address] ORDERABLES Final Result * XR MYELOGRAM CERVICAL (01/04/2025 2:22 PM CDT) Anatomical Region Laterality Modality Spine Computed Radiogr aphy 01/04/2025 2:23 PM CDT Impressions 01/04/2025 3:34 PM CDT IMPRESSION: 1. Successful lumbar puncture with intrathecal contrast injection for CT cervical myelogram. Please see complete CT cervical myelogram report for full details. DICTATION LOCATION: Location [address] [place] [address] Narrative 01/04/2025 3:34 PM CDT LUMBAR PUNCTURE [...] full details. DICTATION LOCATION: Location 1 - [facility] Sandeep Rolle MD DIAGNOSTIC IMAGING ORDERABLES F [...] inal Result from Last 3 Months Insurance [facility] [address] [address] Member Subscriber Plan / Payer (Ef fective 2024-Present) Name:Pili Alvarenga Relation to Subscriber:Self Name:Pili Alvarenga Payer ID:[id number] (NAIC) Type:PPO Address: [place] [id number]
--- OUTSIDE RECORDS SUMMARY | 2025-02-27 20:32 | XMS_ITS | Encounter Summary ---
Author Organization [facility] Address [address] [place] [address] Care Team Providers Care Sight Mounter Name Role Phone Unavailable Primary Care Provider Unavailabl e Encounter Details Date Type Department Care Team (Late st Contact Info) Description 02/27/2025 Results Follow-Up [facility] Heart and Vascular At [address] [place] [address] Aleah Peralta, RN ECHO COMPLETE - CONTRAST AND STRAIN IF INDICATED Social History Tobacco Use Types Packs/Day Years Used Date Smoking Tobacco: Never Alcohol Use Standard Drinks/Week Comments Yes 0 (1 standard drink = 0.6 oz pur e alcohol) Comments Unknown Sex and Gender Information Value Date Recorded Sex Assigned at Not on file 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
== END 2025-02-27 20:25 | disposition home or self-care (01) ==
LOC: ANHED 20:30
PROVIDERS: Emergency Provider Physician Assistant
DX: S92.515A Nondisplaced fracture of proximal phalanx of left lesser toe(s), initial encounter for closed fracture (principal); I10 Essential (primary) hypertension; E78.5 Hyperlipidemia, unspecified; Z87.891 Personal history of nicotine dependence; Z79.82 Long term (current) use of aspirin; Z79.899 Other long term (current) drug therapy; W22.8XXA Striking against or struck by other objects, initial encounter
CPT/HCPCS: 73630; 99284